=== PATIENT | male | born 1950 | race Caucasian/White ===

== ENCOUNTER → 2017-01-04 | Outpatient (CLI) | payer BC ==
[~2017-01-04] MED LIST: ASCO500T3 PO; CALC250T8 PO; CALC500C3 PO; CHOL100010 PO; CHONCAP PO; GLUC10007 PO; MISCCAP3 PO; MULT-513 PO; Magnesium PO; PRIMROSE PO
== END | disposition home or self-care (01) ==
LOC: C.LABBC 09:17
PROVIDERS: ATTEND Internal Medicine
DX: Z00.00 Encounter for general adult medical examination without abnormal findings (principal); C61 Malignant neoplasm of prostate

== ENCOUNTER → 2017-03-02 | Outpatient (CLI) | payer BC ==
[2017-03-02 17:19] LABS: LYME DISEASE AB IGG NEG (NEG); LYME DISEASE AB IGM NEG (NEG)
== END | disposition home or self-care (01) ==
LOC: C.LABBC 14:47
PROVIDERS: ATTEND Internal Medicine
DX: R21 Rash and other nonspecific skin eruption (principal)

== ENCOUNTER → 2017-05-25 | Outpatient (CLI) | payer BC ==
[2017-05-25 11:02] LABS: BASO % 0.7 %; BASO ABS # 0.04 K/uL (0-0.2); COMPLETE YES; EOS % 2.6 %; HEMATOCRIT 41.5 % (42-52); IG% 0.2 %; LYMPH % 28.1 %; LYMPH ABS # 1.54 K/uL (1.2-3.4); MEAN CELL VOLUME 91.2 fL (80-100); MEAN CORPUSCULAR HEMOGLOBIN 30.1 pg (25-34); MEAN PLATELET VOLUME 8.9 fL (7.4-10.4); MONO % 10.9 %; NEUT % 57.5 %; PLATELET COUNT 258 K/uL (130-400); RED BLOOD COUNT 4.55 M/uL (4.7-6.1); WHITE BLOOD COUNT 5.48 K/uL (4.8-10.8)
[2017-05-25 11:26] LABS: ALT/SGPT 29 U/L (12-78); AST/SGOT 23 U/L (15-37); BLOOD UREA NITROGEN 24 mg/dl (7-18); BUN/CREATININE RATIO 22.8 (10-20); CALCIUM 8.9 mg/dl (8.5-10.1); CARBON DIOXIDE 27 mmol/L (21-32); CHLORIDE 103 mmol/L (98-107); CREATININE 1.03 mg/dl (0.60-1.40); GLUCOSE 93 mg/dl (70-99); POTASSIUM 4.4 mmol/L (3.5-5.1); SODIUM 138 mmol/L (136-145)
[2017-05-25 11:29] LABS: ALB/GLOB RATIO 1.2 (0.9-2); ALKALINE PHOSPHATASE 50 U/L (45-117); CHOLESTEROL 194 mg/dl (0-200); HDL CHOLESTEROL 95 mg/dl; LDL CHOLESTEROL CALCULATED 91 mg/dl; TRIGLYCERIDES 42 mg/dl (0-150); VERY LOW DENSITY LIPOPROT CALC 8 mg/dl
--- NOTE | 2017-06-15 11:50 | CODING QUERY MEDICAL NECESSITY ---
CQSUPPORTING DIAGNOSIS NEEDED A supporting diagnosis is required for the test/procedure performed on this patient in order for us to be reimbursed by the patient's insurance. Please provide a supporting diagnosis for the following test/procedure listed below next to the test name along with your signature. *If there is no additional diagnosis for this patient that would support the following test/procedure please document that below next to the test/procedure. Test(s)/Procedure(s) that require a supporting diagnosis: DOS 05/25/17 VITAMIN D TEST Provider Signature: Date: Thank you Violeta Hayden Health Information Management Once completed, please kindly fax back to [phone] For questions please call [phone]
== END | disposition home or self-care (01) ==
LOC: C.LABBC 08:30
PROVIDERS: ATTEND Internal Medicine
DX: Z00.00 Encounter for general adult medical examination without abnormal findings (principal); D64.9 Anemia, unspecified; E78.5 Hyperlipidemia, unspecified; Z11.59 Encounter for screening for other viral diseases; C61 Malignant neoplasm of prostate; N35.9 Urethral stricture, unspecified

== ENCOUNTER → 2017-07-27 | Outpatient (CLI) | payer BC | END | disposition home or self-care (01) | LOC: C.LABBC 10:59 | PROVIDERS: ATTEND Psychiatry & Neurology Neurology | DX: R41.89 Other symptoms and signs involving cognitive functions and awareness (principal); R41.3 Other amnesia ==

== ENCOUNTER → 2017-08-03 | Outpatient (CLI) | payer BC | END | disposition home or self-care (01) | LOC: C.PATHSPEC 15:07 | PROVIDERS: ATTEND Dentist Oral and Maxillofacial Surgery | DX: M27.2 Inflammatory conditions of jaws (principal) ==

== ENCOUNTER → 2017-08-07 | Outpatient (CLI) | payer BC ==
--- NOTE | 2017-08-07 11:50 | DIAGNOSTIC IMAGING REPORT ---
MRI OF THE BRAIN WITHOUT IV CONTRAST CLINICAL HISTORY: Cognitive impairment. COMPARISON STUDY: No priors. TECHNIQUE: MRI of the brain was performed utilizing various T1 and T2-weighted sequences in the axial, sagittal, and coronal planes. IV contrast was not administered for this examination. FINDINGS: Brain parenchyma: There is mild subcortical and periventricular microangiopathic disease. There is no hemorrhage or mass effect. There is no restricted diffusion to suggest acute ischemia. Carrizales-white matter differentiation is preserved. No extra-axial fluid collection is seen. The cerebellar tonsils are normal in configuration. Ventricles, sulci, and cisterns: Normal in configuration. Pituitary and sella: Unremarkable. Intracranial vasculature: Normal flow voids are maintained at the skull base. Orbits: The bony orbits are grossly intact. Orbital contents are normal in appearance. Sinuses and mastoids: There is a moderate right mastoid effusion. The left mastoid air cells and paranasal sinuses are clear. Calvarium: Unremarkable. Cervical cord: Partially visualized cervical spinal cord is normal in morphology and signal intensity. IMPRESSION: 1. No acute intracranial abnormality. 2. Mild microangiopathic change as above. 3. Right mastoid effusion. Electronically signed by: Tej Scanlon M.D. 08/07/2017 11:49 AM Dictated Date/Time: 08/07/2017 11:22 AM
== END | disposition home or self-care (01) ==
LOC: C.MRIBC 10:38
PROVIDERS: ATTEND Psychiatry & Neurology Neurology
DX: R41.89 Other symptoms and signs involving cognitive functions and awareness (principal); R41.3 Other amnesia; R51 Headache

== ENCOUNTER → 2017-11-01 | Outpatient (CLI) | payer BC ==
--- NOTE | 2017-11-01 18:44 | DIAGNOSTIC IMAGING REPORT ---
(CHEST FOR PE) ANGIO WITH CT DOSE: 300.84 mGy.cm HISTORY: 67 years-old Male presents with acute shortness of breath and cardiac palpitations. History of prostate cancer. TECHNIQUE: Multiple CTA images of the chest were obtained after the intravenous administration of 93 ml Optiray 320. Coronal and sagittal MIPS were obtained from the axial data set and were submitted for review. A dose lowering technique was utilized adhering to the principles of ALARA. COMPARISON: Chest CT 04/09/2015, chest radiograph 09/07/2015 FINDINGS: CTA: Heart size is upper limits of normal. Trace pericardial effusion. Left heart structures are not well opacified. Fusiform dilation of the ascending thoracic aorta measures 4.5 x 4.5 cm in AP and transverse dimension, previously measuring approximately 4.3 x 4.4 cm on study dated 04/09/2015. Moderate atherosclerosis of the aortic arch. No definite dissection identified. The pulmonary arterial tree is opacified to the level of the subsegmental branches and demonstrates no focal filling defects to suggest pulmonary thromboembolic disease. CT CHEST: Mildly heterogeneous appearance of the thyroid with 6 mm right thyroid nodule. No pathologically enlarged lymph nodes by CT size criteria. There is no pneumothorax or pleural effusion. No lobar airspace consolidation to suggest pneumonia. Mild biapical pleural-parenchymal scarring. No suspicious pulmonary nodules or masses identified. Mild nonspecific bilateral bronchial wall thickening. Central airways are patent. No acute process of the imaged upper abdomen identified. 2.2 cm cyst of the superior pole left kidney. Soft tissues are unremarkable. Bones appear intact. IMPRESSION: 1. No acute intrathoracic abnormality identified, specifically no evidence of pulmonary thromboembolic disease. 2. Fusiform aneurysmal dilation of the ascending thoracic aorta, 4.5 x 4.5 cm has slightly increased in size from comparison study 04/09/2015. 3. No lobar airspace consolidation or pathologic adenopathy identified. The above report was generated using voice recognition software. It may contain grammatical, syntax or spelling errors. Electronically signed by: Tato Betancourt M.D. 11/01/2017 6:43 PM Dictated Date/Time: 11/01/2017 6:34 PM
== END | disposition home or self-care (01) ==
LOC: C.CTS 17:35
PROVIDERS: ATTEND Internal Medicine
DX: R00.2 Palpitations (principal); R06.02 Shortness of breath; I77.810 Thoracic aortic ectasia

== ENCOUNTER 2022-11-15 08:33 | Inpatient (IN) ==
--- NOTE | 2022-11-15 08:50 | Emergency Department Note ---
Impression & Plan Fracture of right hip, Fall, Dementia, Anemia ED Provider Note NAME: GIOVANNA VELASQUEZ AGE: 72 SEX: M : 1950 ARRIVES VIA: Ambulance INFORMANT: [Patient][ems, nursing] ED PROVIDER(S): [Tej Rojas MD] CHIEF COMPLAINT: Fall HISTORY OF PRESENT ILLNESS: The patient is a 72-year-old male who apparently had an unwitnessed fall sometime this morning. He complains of right upper leg pain and he yells when he tries to stand on the leg. The patient has dementia and cannot offer any history. No other areas of injury noted by EMS. PMHx/PSHx: See Below SOCIAL HISTORY: See Below. PHYSICAL EXAM: GENERAL: Patient is in no acute distress. HEENT: No acute trauma, normocephalic atraumatic, mucous membranes moist, no nasal congestion. NECK: No stridor, no adenopathy, no meningismus, trachea is midline. LUNGS: Clear to auscultation bilaterally, no wheeze, no rhonchi, breath sounds equal. HEART: Without murmurs gallops or rubs, regular rate and rhythm. ABDOMEN: Soft, nontender, bowel sounds positive, no peritonitis. EXTREMITIES: No cyanosis or edema. There appears to be some pain in the area of the right hip and femur with movement of the leg. There is no gross deformity. The right knee is nontender and there is no effusion. The right ankle and right foot are nontender. The right quadriceps and patellar tendons appear intact. NEUROLOGIC: Awake, interactive, moves all extremities, dementia/confusion noted. Poor historian. SKIN: No rash, no jaundice, no diaphoresis. DIFFERENTIAL DIAGNOSIS: Fracture, sprain, strain, hematoma, contusion,, intracranial injury, among others. EMERGENCY DEPARTMENT COURSE/PROCEDURES: Prior/Outside records reviewed: Recent primary care note. ECG per my interpretation: Indication was hip fracture. The ECG shows a normal sinus rhythm with a rate of 63. There is a right bundle branch block. There is no ST elevation, no PVCs. The QTc is 450. MEDICAL DECISION MAKING: There is no leukocytosis. A mild anemia was seen, this is baseline looking back at previous testing. There was a normal platelet count. No coagulopathy. No renal failure or significant electrolyte abnormality. No concerning liver enzyme elevation. COVID test returned negative. ECG shows a normal sinus rhythm, no dysrhythmia or ischemia. Pelvis and bilateral hip films were performed. Per my review, there is a right intertrochanteric hip fracture. No pelvic fracture. No left hip fracture. Brain CT showed no acute bleed or mass effect. On exam, the patient was a very poor historian but appeared to have pain with movement of the right hip. He complained at times of pain in the left hip as well as the right. I did speak with the patient's family, I spoke with the patient. The patient will require a hospital stay given the findings on our imaging. I did consult Dr. Ferrell of orthopedics. I spoke with case management, the on- call hospitalist was consulted. During the patient's stay, he was given IV Zofran as well as IV morphine. He seems to be resting comfortably. DISPOSITION: Patient's presentation and findings warrant a hospital stay. Past Med/Surg History Medical History Cognitive dysfunction Dyslipidemia Intermittent lightheadedness Major neurocognitive disorder Memory difficulties Orthostasis Pneumonia (~09/2013) Surgical History H/O vasectomy History of colonoscopy History of knee surgery History of prostate surgery Family History Father Dementia COPD (chronic obstructive pulmonary disease) Hypertension Prostate cancer Mother Multiple myeloma Family/Other Benign neoplasm of pituitary gland Colorectal cancer Anxiety Uncle Prostate cancer Denies family history of Ovarian cancer Myocardial infarction Breast cancer Social History Smoking Status: Unknown if ever smoked Tobacco Type: Cigarettes Second Hand Exposure: No; Do You Dip or Chew Tobacco: No; Hx Alcohol Use: Yes Alcohol type: hard liquor Alcohol Intake Frequency: Monthly or Less Hx Substance Use: No (medical marijuana) Preferred Language: French Communication Ability: Effective Visual Impairment: Limited Hearing Ability: Normal Core Inspector Required: No marital status: / current occupational status: retired How many Children do You have: 2 Feels Safe at Home: Yes Childhood Exposure to Second-Hand Smoke: No Diet: low carbohydrate caffeine: Yes Dental Care, Regularly: Yes Physical Activity Frequency: 3-4 Times per Week Seatbelt Use: always Sunscreen Use: Yes Allergies Allergies Allergy/AdvReac Type Severity Reaction Status Date / Time No Known Allergies Allergy Verified 10/19/22 14:42 Neoprene Knee Stabilizer AdvReac Unknown Rash Uncoded 10/19/22 14:42 Home Meds Home Medications Medication Instructions Recorded Confirmed leuprolide (4 month) 30 mg (4 30 mg IM Q16W 03/04/19 11/15/22 month) intramuscular syringe kit (Lupron Depot) acetaminophen 325 mg capsule 650 mg PO QID PRN Pain 10/19/22 11/15/22 docusate sodium 100 mg capsule 100 mg PO BID 10/19/22 11/15/22 (Colace) haloperidol 0.5 mg tablet 0.5 mg PO TID PRN Agitation 10/19/22 11/15/22 melatonin 3 mg capsule 3 mg PO HS PRN Sleep 10/19/22 11/15/22 quetiapine 50 mg tablet (Seroquel) See Rx Instructions PO DAILY 10/19/22 11/15/22 trazodone 50 mg tablet 50 mg PO HS 11/15/22 11/15/22 Previous Rx's Medication Instructions Recorded famotidine 20 mg tablet 20 mg PO BID #180 tabs 02/03/22 fluoxetine 20 mg capsule 20 mg PO DAILY #90 caps 02/03/22 Results & Data (ED) Vital Signs Vital Signs - 24 hr 11/15/22 08:33 11/15/22 08:44 11/15/22 10:00 Temperature 36.6 C Temperature Source Axillary Pulse Rate 77 68 Pulse Rate [Right Finger] 69 Pulse Rhythm [Right Finger] Regular Pulse Strength [Right Finger] Normal Respiratory Rate 18 18 Respiratory Effort / Characteristics Non-Labored Non-Labored Respiratory Depth Normal Normal Respiratory Pattern Regular Regular Blood Pressure 155/97 H Blood Pressure [Right Arm] 150/95 H Blood Pressure Mean 116 Blood Pressure Mean [Right Arm] 113 Blood Pressure Position [Right Arm] Pulse Oximetry 98 93 Oxygen Delivery Method Room Air Room Air Sepsis Recent Fever Within 48 Hours No Sepsis New/Unexplained Change in Mental Status N/A Sepsis Action Taken by Nursing No Action Required 11/15/22 12:00 11/15/22 13:02 Temperature Temperature Source Pulse Rate 72 Pulse Rate [Right Finger] 75 Pulse Rhythm [Right Finger] Regular Pulse Strength [Right Finger] Normal Respiratory Rate 22 Respiratory Effort / Characteristics Non-Labored Respiratory Depth Normal Respiratory Pattern Regular Blood Pressure Blood Pressure [Right Arm] 126/87 Blood Pressure Mean Blood Pressure Mean [Right Arm] 100 Blood Pressure Position [Right Arm] Lying Pulse Oximetry 97 Oxygen Delivery Method Room Air Sepsis Recent Fever Within 48 Hours Sepsis New/Unexplained Change in Mental Status Sepsis Action Taken by Longterm Medications Current Medication List: was personally reviewed by me Laboratory Data Attestation: I reviewed the patient's lab results. 11/15/22 09:52 11/15/22 09:52 Lab Results 11/15/22 11/15/22 11/15/22 Range/Units 09:52 09:52 09:52 WBC 5.34 (4.8-10.8) K/ul RBC 4.26 L (4.70-6.10) M/uL Hgb 12.6 L (14.0-18.0) g/dl Hct 36.9 L (42.0-52.0) % MCV 86.6 (80.0-100.0) fL MCH 29.6 (25.0-34.0) pg MCHC 34.1 (32.0-36.0) g/dL RDW Std Deviation 40.9 (36.4-46.3) fL RDW Coeff of Carol 13.0 (11.5-14.5) % Plt Count 236 (130-400) K/uL MPV 8.7 L (9.4-12.4) fL Immature Gran % (Auto) 0.7 % Neut % (Auto) 77.0 % Lymph % (Auto) 14.2 % [place] % (Auto) 6.2 % Eos % (Auto) 1.5 % Baso % (Auto) 0.4 % Neut # (Auto) 4.11 (1.40-6.50) K/uL Lymph # (Auto) 0.76 L (1.2-3.4) K/uL [place] # (Auto) 0.33 (0.11-0.59) K/uL Eos # (Auto) 0.08 (0-0.50) K/uL Baso # (Auto) 0.02 (0-0.2) K/uL Immature Gran # (Auto) 0.04 (0.01-0.20) K/uL PT 11.4 (9.0-12.0) Seconds INR 1.0 (0.9-1.1) APTT 26.0 (21.0-31.0) Seconds PTT Ratio 0.9 Sodium 139 (136-145) mmol/L Potassium 3.9 (3.5-5.1) mmol/L Chloride 104 (98-107) mmol/L Carbon Dioxide 27 (21-32) mmol/L Anion Gap 8 (3-11) BUN 13 (6-23) mg/dl Creatinine 0.69 (0.6-1.4) mg/dl Est Cr Clr Drug Dosing Not Reportable Est GFR ( Amer) 109.9 ml/min Est GFR (Non-Af Amer) 94.8 ml/min BUN/Creatinine Ratio 18.8 (10-20) Glucose 103 H (70-99(Fasting)) mg/dl Calcium 9.1 (8.6-10.3) mg/dl Total Bilirubin 0.6 (0.2-1.0) mg/dl AST 17 (13-39) U/L ALT 9 (7-52) U/L Alkaline Phosphatase 87 (34-104) U/L Total Creatine Kinase (30-223) U/L Total Protein 6.9 (6.0-8.3) gm/dl Albumin 4.2 (3.4-5.0) gm/dl Globulin 2.7 (2.5-4.0) gm/dl Albumin/Globulin Ratio 1.6 (0.9-2) SARS-CoV-2, RNA, NAAT (NEGATIVE) Blood Type Antibody Screen 11/15/22 11/15/22 11/15/22 Range/Units 10:54 10:57 10:57 WBC (4.8-10.8) K/ul RBC (4.70-6.10) M/uL Hgb (14.0-18.0) g/dl Hct (42.0-52.0) % MCV (80.0-100.0) fL MCH (25.0-34.0) pg MCHC (32.0-36.0) g/dL RDW Std Deviation (36.4-46.3) fL RDW Coeff of Carol (11.5-14.5) % Plt Count (130-400) K/uL MPV (9.4-12.4) fL Immature Gran % (Auto) % Neut % (Auto) % Lymph % (Auto) % [place] % (Auto) % Eos % (Auto) % Baso % (Auto) % Neut # (Auto) (1.40-6.50) K/uL Lymph # (Auto) (1.2-3.4) K/uL [place] # (Auto) (0.11-0.59) K/uL Eos # (Auto) (0-0.50) K/uL Baso # (Auto) (0-0.2) K/uL Immature Gran # (Auto) (0.01-0.20) K/uL PT (9.0-12.0) Seconds INR (0.9-1.1) APTT (21.0-31.0) Seconds PTT Ratio Sodium (136-145) mmol/L Potassium (3.5-5.1) mmol/L Chloride (98-107) mmol/L Carbon Dioxide (21-32) mmol/L Anion Gap (3-11) BUN (6-23) mg/dl Creatinine (0.6-1.4) mg/dl Est Cr Clr Drug Dosing Est GFR ( Amer) ml/min Est GFR (Non-Af Amer) ml/min BUN/Creatinine Ratio (10-20) Glucose (70-99(Fasting)) mg/dl Calcium (8.6-10.3) mg/dl Total Bilirubin (0.2-1.0) mg/dl AST (13-39) U/L ALT (7-52) U/L Alkaline Phosphatase (34-104) U/L Total Creatine Kinase 60 (30-223) U/L Total Protein (6.0-8.3) gm/dl Albumin (3.4-5.0) gm/dl Globulin (2.5-4.0) gm/dl Albumin/Globulin Ratio (0.9-2) SARS-CoV-2, RNA, NAAT NEGATIVE (NEGATIVE) Blood Type AB Negative Antibody Screen NEGATIVE Administered Medications Discontinued Medications Acetaminophen (Acetaminophen 325 Mg Tab) 650 mg PO NOW STA Stop: 11/15/22 11:28 Last Admin: 11/15/22 12:34 Dose: 650 mg Documented By: AP Lactated Ringer's (Lr) 1,000 mls @ 999 mls/hr IV .Q1H1M ONE Stop: 11/15/22 12:29 Last Admin: 11/15/22 12:34 Dose: 999 mls/hr Documented By: AP Morphine Sulfate (Morphine Sulfate 4 Mg/Ml 1 Ml Carp\Vial) 4 mg IV Q30M PRN PRN Reason: Severe Pain (Rating 7,8,9,10) Stop: 11/29/22 09:20 Last Admin: 11/15/22 10:11 Dose: 4 mg Documented By: AP Morphine Sulfate (Morphine Sulfate 2 Mg/Ml Carp) 2 mg IV NOW STA Stop: 11/15/22 12:34 Last Admin: 11/15/22 13:03 Dose: 2 mg Documented By: AP Ondansetron HCl (Ondansetron Inj 2 Mg/Ml 2 Ml Vial) 4 mg IV NOW STA Stop: 11/15/22 09:22 Last Admin: 11/15/22 10:11 Dose: 4 mg Documented By: AP Quetiapine Fumarate (Quetiapine Fumarate 25 Mg Tablet) 50 mg PO NOW STA Stop: 11/15/22 12:38 Last Admin: 11/15/22 13:12 Dose: 50 mg Documented By: AP Imaging Data Radiologist's Impression: Femur X-Ray 11/15/22 08:45 XR femur RT 2V routine, XR femur LT 2V routine CLINICAL HISTORY: Fall. Bilateral femur pain. COMPARISON STUDY: Pelvis radiograph 11/15/2022. FINDINGS: There is again noted a comminuted and mildly displaced intertrochanteric fracture within the proximal right femur. The distal right femur appears intact. No dislocation. No acute fracture or dislocation within the left femur. IMPRESSION: 1. Redemonstration of the proximal right femoral intertrochanteric fracture. 2. No fracture or dislocation within the left femur. ACT 112: Negative or not required by law. Electronically signed by: Ever Wade M.D. 11/15/2022 9:[address] 11/15/22 08:45 CT SCAN OF THE BRAIN WITHOUT IV CONTRAST CLINICAL HISTORY: Fall. Dementia. COMPARISON STUDY: CT of the brain dated 06/23/2022 TECHNIQUE: Unenhanced axial CT scan of the brain is performed from the vertex to the skull base. A dose lowering technique was utilized adhering to the principles of ALARA. CT DOSE: 614.27 mGy.cm FINDINGS: Brain parenchyma: There is age-related involutional change noting moderate subcortical and periventricular microangiopathic disease. There is no hemorrhage, mass effect, or evidence of acute territorial ischemia by CT criteria. Carrizales-white matter differentiation is preserved. No extra-axial fluid collection is seen. Ventricles, sulci, cisterns: Prominent secondary to involutional change. Intracranial vasculature: There is atherosclerotic calcification of the cavernous carotid arteries. Calvarium: The skeletal structures are osteopenic. No depressed calvarial fracture is seen. Sinuses and mastoids: The visualized paranasal sinuses are clear. The mastoid air cells are well pneumatized. Cerumen is noted in the left external auditory canal. Orbits: The bony orbits are grossly intact. There are bilateral ocular lens implants. IMPRESSION: There is no hemorrhage, mass effect, or evidence of acute territorial ischemia by CT criteria. ACT 112: Negative or not required by law. Electronically signed by: Tej Scanlon M.D. 11/15/2022 10:22 AM Pelvis X-Ray 11/15/22 08:45 SINGLE VIEW PELVIS CLINICAL HISTORY: Fall. Pain. FINDINGS: An AP supine view of the pelvis is obtained. Correlation is made with pelvic CT dated 04/16/2019. The skeletal structures are osteopenic. No acute fracture is seen involving the left hip or the bony pelvis. There is a comminuted intertrochanteric fracture of the right proximal femur with medial displacement of the lesser trochanter. Overlying soft tissue edema is noted. Mild arthritic change and joint space narrowing is seen in the hips. Degenerative sclerosis is noted in the sacroiliac joints. Lumbosacral spondylosis is partially imaged. Surgical clips project over the scrotum. There is no bowel obstruction. IMPRESSION: Intertrochanteric fracture of the right proximal femur as above. Electronically signed by: Tej Scanlon M.D. 11/15/2022 9:39 AM Femur X-Ray 11/15/22 09:01 XR femur RT 2V routine, XR femur LT 2V routine CLINICAL HISTORY: Fall. Bilateral femur pain. COMPARISON STUDY: Pelvis radiograph 11/15/2022. FINDINGS: There is again noted a comminuted and mildly displaced intertrochanteric fracture within the proximal right femur. The distal right femur appears intact. No dislocation. No acute fracture or dislocation within the left femur. IMPRESSION: 1. Redemonstration of the proximal right femoral intertrochanteric fracture. 2. No fracture or dislocation within the left femur. ACT 112: Negative or not required by law. Electronically signed by: Ever Wade M.D. 11/15/2022 9:45 AM Chest X-Ray 11/15/22 11:55 SUPINE PORTABLE AP CHEST RADIOGRAPH CLINICAL HISTORY: Pre-operative clearance for right hip fracture COMPARISON STUDY: Chest CT April 16, 2019. FINDINGS: Lung volumes are normal. There is no consolidation to suggest pneumonia. Linear left basilar density represents atelectasis or scarring. There is no pneumothorax or pleural effusion on supine exam. Cardiac size is normal. Mediastinal contours are normal. There is no evidence for pulmonary edema. IMPRESSION: No acute cardiopulmonary findings. ACT 112: Negative or not required by law. Electronically signed by: Brodie Hernandez M.D. 11/15/2022 12:40 PM Discharge Plan Visit Data Chief Complaint: Fall Stated Complaint: FALL, R LEG PAIN ED Provider: Tej Rojas Discharge Problem: Fracture of right hip, Fall, Dementia, Anemia Patient Disposition: Admitted As Inpatient Condition: Good Forms Stand Alone Forms: My LOYAL3 Prescriptions Prescriptions: No Action famotidine 20 mg tablet 20 mg PO BID Qty: 180 1RF fluoxetine 20 mg capsule 20 mg PO DAILY Qty: 90 1RF docusate sodium [Colace] 100 mg capsule 100 mg PO BID quetiapine [Seroquel] 50 mg tablet See Rx Instructions PO DAILY Rx Instructions: 100mg in morning, 50 mg at 2pm, 200mg at bedtime melatonin 3 mg capsule 3 mg PO HS PRN (Reason: Sleep) acetaminophen 325 mg capsule 650 mg PO QID PRN (Reason: Pain) haloperidol 0.5 mg tablet 0.5 mg PO TID PRN (Reason: Agitation) Lupron Depot (4 month) 30 mg syringe kit 30 mg IM Q16W trazodone 50 mg tablet 50 mg PO HS Referrals Referrals: Fuentes Tan MD [Primary Care Provider] -
[2022-11-15] MEDS ORDERED: MoRPHine SULFATE 4 MG/ML 1 ML CARP\\VIAL IV PRN (09:21)
[2022-11-15] MEDS ORDERED: ONDANSETRON INJ 2 MG/ML 2 ML VIAL IV STA (09:21)
--- NOTE | 2022-11-15 09:41 | XRay Report ---
SINGLE VIEW PELVIS CLINICAL HISTORY: Fall. Pain. FINDINGS: An AP supine view of the pelvis is obtained. Correlation is made with pelvic CT dated 2018. The skeletal structures are osteopenic. No acute fracture is seen involving the left hip or the bony pelvis. There is a comminuted intertrochanteric fracture of the right proximal femur with media l displacement of the lesser trochanter. Overlying soft tissue edema is noted. Mild arthritic change and joint space narrowing is seen in the hips. Degenerative sclerosis is noted in the sacroiliac join ts. Lumbosacral spondylosis is partially imaged. Surgical clips project over the scrotum. There is no bowel obstruction. IMPRESSION: Intertrochanteric fracture of the right proximal femur as above. Electronically signed by: Tej Scanlon M.D. 11/15/2022 9:39 AM
--- NOTE | 2022-11-15 09:47 | XRay Report ---
XR femur RT 2V routine, XR femur LT 2V routine CLINICAL HISTORY: Fall. Bilateral femur pain. COMPARISON STUDY: Pelvis radiograph 11/15/2022. FINDINGS: There is again noted a comminuted and mildly displaced intertrochanteric fracture within th e proximal right femur. The distal right femur appears intact. No dislocation. No acute fracture or d islocation within the left femur. IMPRESSION: 1. Redemonstration of the proximal right femoral intertrochanteric fracture. 2. No fracture or dislocation within the left femur. ACT 112: Negative or not required by law. Electronically signed by: Ever Wade M.D. 11/15/2022 9:45 AM
[2022-11-15 10:22] LABS: Basophils # (auto) 0.02 K/uL (0-0.2); Basophils % (auto) 0.4 %; Eosinophils # (auto) 0.08 K/uL (0-0.50); Eosinophils % (auto) 1.5 %; Hematocrit (blood only) 36.9 % (42.0-52.0); Hemoglobin 12.6 g/dl (14.0-18.0); Immature Granulocytes # (auto) 0.04 K/uL (0.01-0.20); Immature Granulocytes % (auto) 0.7 %; Lymphocytes # (auto) 0.76 K/uL (1.2-3.4); Lymphocytes % (auto) 14.2 %; Mean Corpuscular Hemoglobin 29.6 pg (25.0-34.0); Mean Corpuscular Hgb Conc 34.1 g/dL (32.0-36.0); Mean Corpuscular Volume 86.6 fL (80.0-100.0); Mean Platelet Volume 8.7 fL (9.4-12.4); Monocytes # (auto) 0.33 K/uL (0.11-0.59); Monocytes % (auto) 6.2 %; Neutrophils # (auto) 4.11 K/uL (1.40-6.50); Platelet Count 236 K/uL (130-400); RDW Standard Deviation 40.9 fL (36.4-46.3); Red Blood Count 4.26 M/uL (4.70-6.10); White Blood Count 5.34 K/ul (4.8-10.8)
--- NOTE | 2022-11-15 10:24 | CT Scan Report ---
CT SCAN OF THE BRAIN WITHOUT IV CONTRAST CLINICAL HISTORY: Fall. Dementia. COMPARISON STUDY: CT of the brain dated 06/23/2022 TECHNIQUE: Unenhanced axial CT scan of the brain is performed from the vertex to the skull base. A do se lowering technique was utilized adhering to the principles of ALARA. CT DOSE: 614.27 mGy.cm FINDINGS: Brain parenchyma: There is age-related involutional change noting moderate subcortical and periventri cular microangiopathic disease. There is no hemorrhage, mass effect, or evidence of acute territorial ischemia by CT criteria. Carrizales-white matter differentiation is preserved. No extra-axial fluid collec tion is seen. Ventricles, sulci, cisterns: Prominent secondary to involutional change. Intracranial vasculature: There is atherosclerotic calcification of the cavernous carotid arteries. Calvarium: The skeletal structures are osteopenic. No depressed calvarial fracture is seen. Sinuses and mastoids: The visualized paranasal sinuses are clear. The mastoid air cells are well pneu matized. Cerumen is noted in the left external auditory canal. Orbits: The bony orbits are grossly intact. There are bilateral ocular lens implants. IMPRESSION: There is no hemorrhage, mass effect, or evidence of acute territorial ischemia by CT hodan mayes. ACT 112: Negative or not required by law. Electronically signed by: Tej Scanlon M.D. 11/15/2022 10:22 AM
[2022-11-15 10:34] LABS: Alanine Aminotransferase 9 U/L (7-52); Albumin Globulin Ratio 1.6 (0.9-2); Albumin Level 4.2 gm/dl (3.4-5.0); Alkaline Phosphatase 87 U/L (34-104); Anion Gap 8 (3-11); Aspartate Aminotransferase 17 U/L (13-39); BUN Creatinine Ratio 18.8 (10-20); Bilirubin,Total 0.6 mg/dl (0.2-1.0); Blood Urea Nitrogen 13 mg/dl (6-23); Calcium 9.1 mg/dl (8.6-10.3); Carbon Dioxide 27 mmol/L (21-32); Chloride 104 mmol/L (98-107); Est GFR (African American) 109.9 ml/min; Est GFR (Non-African American) 94.8 ml/min; Globulin 2.7 gm/dl (2.5-4.0); Glucose 103 mg/dl (70-99(Fasting)); Potassium 3.9 mmol/L (3.5-5.1); Sodium 139 mmol/L (136-145); Total Protein 6.9 gm/dl (6.0-8.3)
--- NOTE | 2022-11-15 10:47 | History & Physical Report ---
Date of Service November 15, 2022 Assessment & Plan (1) Fall: Plan: -Admit to med/tele -Unknown cause of fall as it was unwitnessed, but it does not appear that he was down for a prolonged period of time -No other acute trauma besides the proximal right hip fracture -ED staff spoke with ortho, they are comfortable keeping him here -Keep NPO until we confirm plan with Ortho -Will obtain CK -BL SCD's for DVT PPX for now, will start chemical PPX when ortho is comfortable -Pain control with oral tylenol and 2 mg IV morpine q3h prn pain (4,5,6+) -Fall precautions -Keep on tele for now as the etiology of the fall is unknown -AM CBC, BMP, PT/INR (2) Bifascicular block: Plan: -Noted on ECG today, does have a previous hx of Incomplete right bundle branch block Left anterior fascicular block on previous ECG from Jun -Patient is currently asymptomatic -Monitor on tele for now (3) Closed right hip fracture: Plan: -See fall (4) Major neurocognitive disorder: Plan: -Continue PRN halodol for agitation and scheduled seroquel -Monitor for increased sedation due to pain control with hip fracture (5) Depression with anxiety: Plan: -Continue fluoxetine (6) Prostate cancer: Plan: -Confirmed with children that he is still on q4h Leuprn -Continue to follow with oncology outpatient Plan The patient was discussed with Dr. Shirley at the time of the admission History of Present Illness Chief Complaint: Unwitnessed Primary Care Provider: Fuentes Tan MD Milton is a 72 year old male with a PMH significant for dementia, intermittent lightheadedness, and metastatic prostate cancer S/P radical prostatectomy and Lupron therapy in 2011 [address] the [facility] ED via EMS from the [facility] due to unwitnessed fall. Per the ED staff, it is unknown when the patient fell, if he hit his head/lost consciousness, or how long he was down for. s His vitals were stable and labs including CBC, CMP, and high sen trop were WNL. CT head was negative for acute findings. Xray's of the BL pelvis show an Intertrochanteric fracture of the right proximal femur. Per the intake information, EMS reported that the patient was temporarily in afib in transport but converted spontaneously prior to arrival. Prior to admission the patient was given 4 mg IV morphine. At the time of the exam the patient was lying in bed in no acute distress with his children bedside. The patient is unable to provide history due to his baseline mental status. His children state, they were told the patient fell this am while at breakfast. However, staff only saw him on the ground, they did not see the fall. His children do not believe that he was down for a prolonged period of time. His children confirm that he is a DNR/DNI. Please refer to Dr. Shirley's attestation for any changes to the treatment plan Allergies Allergy/AdvReac Type Severity Reaction Status Date / Time No Known Allergies Allergy Verified 10/19/22 14:42 Neoprene Knee Stabilizer AdvReac Unknown Rash Uncoded 10/19/22 14:42 Home Medications Medication Instructions Recorded Confirmed Type leuprolide (4 month) 30 mg (4 30 mg IM Q16W 03/04/19 11/15/22 History month) intramuscular syringe kit (Lupron Depot) famotidine 20 mg tablet 20 mg PO BID #180 tabs 02/03/22 11/15/22 Rx fluoxetine 20 mg capsule 20 mg PO DAILY #90 caps 02/03/22 11/15/22 Rx acetaminophen 325 mg capsule 650 mg PO QID PRN Pain 10/19/22 11/15/22 History docusate sodium 100 mg capsule 100 mg PO BID 10/19/22 11/15/22 History (Colace) haloperidol 0.5 mg tablet 0.5 mg PO TID PRN Agitation 10/19/22 11/15/22 History melatonin 3 mg capsule 3 mg PO HS PRN Sleep 10/19/22 11/15/22 History quetiapine 50 mg tablet (Seroquel) See Rx Instructions PO DAILY 10/19/22 11/15/22 History trazodone 50 mg tablet 50 mg PO HS 11/15/22 11/15/22 History Past Med/Surg History Medical History Cognitive dysfunction Dyslipidemia Intermittent lightheadedness Major neurocognitive disorder Memory difficulties Orthostasis Pneumonia (~09/2013) Surgical History H/O vasectomy History of colonoscopy History of knee surgery History of prostate surgery Family History Father Dementia MILD COPD (chronic obstructive pulmonary disease) Hypertension Prostate cancer Mother , Age 61 Multiple myeloma Family/Other Benign neoplasm of pituitary gland Colorectal cancer Anxiety Uncle Prostate cancer Denies family history of Ovarian cancer Myocardial infarction Breast cancer Social History Smoking Status: Never smoker Tobacco Type: Cigarettes Second Hand Exposure: No; Do You Dip or Chew Tobacco: No; Hx Alcohol Use: Yes Alcohol type: hard liquor Alcohol Intake Frequency: Monthly or Less Hx Substance Use: Yes Last Used Substance: Unknown Substance Use Type Other:: Medical MJ Preferred Language: Armenian Communication Ability: Effective Visual Impairment: Limited Hearing Ability: Normal Topographical Engineer Required: No Beliefs That Will Affect Care: None marital status: / Current Living Situation: Alone and Personal Care Facility Current Living Situation Comment: [facility] in [employer] current occupational status: retired How many Children do You have: 2 Feels Safe at Home: Yes Childhood Exposure to Second-Hand Smoke: No Diet: low carbohydrate caffeine: Yes Dental Care, Regularly: Yes Physical Activity Frequency: 3-4 Times per Week Seatbelt Use: always Sunscreen Use: Yes Assistive Devices: None Physical Exam Physical Exam: Physical Exam: General: In no acute distress, stated age, well-nourished, good hygiene HEENT: Normocephalic, atraumatic, no scleral icterus, pupils around round, symmetrical, and reactive to light, dry mucus membranes, trachea midline, no thyromegaly Chest/Pulm: No respiratory distress, symmetrical chest expansion, clear breath sounds throughout Cardiac: RRR, no murmurs noted Abdomen: Negative for ascites and bruising, normoactive bowel sounds, soft, non-tender to palpation throughout Musculoskeletal: RLE is currently shortened and externally rotated, tenderness to palpation over the right hip, intact sensation and motor function in the BL feet, no other acute trauma noted on inspection or exam Extremities: Radial, dorsalis pedis, and posterior tibial pulses are intact and symmetrical, no edema noted in the BL LE's Skin: Warm, dry, no rashes , lesions, or scars noted Neuro: Alert but does not respond appropriately to questions, no focal defects, symmetrical strength in the BL upper extremities, no tremor noted Psych: No acute distress, plesantly confused, cooperative during the exam Results & Data Results & Data Vital Signs (Past 12 Hours) Vital Signs Temp Pulse Pulse Resp BP BP Pulse Ox 11/15/22 10:00 69 18 150/95 H 93 11/15/22 08:44 68 11/15/22 08:33 36.6 C 77 18 155/97 H 98 O2 Del Method 11/15/22 10:00 Room Air 11/15/22 08:44 11/15/22 08:33 Room Air Laboratory Results Abnormal lab results 11/15/22 11/15/22 Range/Units 09:52 09:52 RBC 4.26 L (4.70-6.10) M/uL Hgb 12.6 L (14.0-18.0) g/dl Hct 36.9 L (42.0-52.0) % MPV 8.7 L (9.4-12.4) fL Lymph # (Auto) 0.76 L (1.2-3.4) K/uL Glucose 103 H (70-99(Fasting)) mg/dl Diagnostic Findings Femur X-Ray 11/15/22 08:45 XR femur RT 2V routine, XR femur LT 2V routine CLINICAL HISTORY: Fall. Bilateral femur pain. COMPARISON STUDY: Pelvis radiograph 11/15/2022. FINDINGS: There is again noted a comminuted and mildly displaced intertrochanteric fracture within the proximal right femur. The distal right femur appears intact. No dislocation. No acute fracture or dislocation within the left femur. IMPRESSION: 1. Redemonstration of the proximal right femoral intertrochanteric fracture. 2. No fracture or dislocation within the left femur. ACT 112: Negative or not required by law. Electronically signed by: Ever Wade M.D. 11/15/2022 9:[address] 11/15/22 08:45 CT SCAN OF THE BRAIN WITHOUT IV CONTRAST CLINICAL HISTORY: Fall. Dementia. COMPARISON STUDY: CT of the brain dated 06/23/2022 TECHNIQUE: Unenhanced axial CT scan of the brain is performed from the vertex to the skull base. A dose lowering technique was utilized adhering to the principles of ALARA. CT DOSE: 614.27 mGy.cm FINDINGS: Brain parenchyma: There is age-related involutional change noting moderate subcortical and periventricular microangiopathic disease. There is no hemorrhage, mass effect, or evidence of acute territorial ischemia by CT criteria. Carrizales-white matter differentiation is preserved. No extra-axial fluid collection is seen. Ventricles, sulci, cisterns: Prominent secondary to involutional change. Intracranial vasculature: There is atherosclerotic calcification of the cavernous carotid arteries. Calvarium: The skeletal structures are osteopenic. No depressed calvarial fracture is seen. Sinuses and mastoids: The visualized paranasal sinuses are clear. The mastoid air cells are well pneumatized. Cerumen is noted in the left external auditory canal. Orbits: The bony orbits are grossly intact. There are bilateral ocular lens implants. IMPRESSION: There is no hemorrhage, mass effect, or evidence of acute territorial ischemia by CT criteria. ACT 112: Negative or not required by law. Electronically signed by: Tej Scanlon M.D. 11/15/2022 10:22 AM Pelvis X-Ray 11/15/22 08:45 SINGLE VIEW PELVIS CLINICAL HISTORY: Fall. Pain. FINDINGS: An AP supine view of the pelvis is obtained. Correlation is made with pelvic CT dated 04/16/2019. The skeletal structures are osteopenic. No acute fracture is seen involving the left hip or the bony pelvis. There is a comminuted intertrochanteric fracture of the right proximal femur with medial displacement of the lesser trochanter. Overlying soft tissue edema is noted. Mild arthritic change and joint space narrowing is seen in the hips. Degenerative sclerosis is noted in the sacroiliac joints. Lumbosacral spondylosis is partially imaged. Surgical clips project over the scrotum. There is no bowel obstruction. IMPRESSION: Intertrochanteric fracture of the right proximal femur as above. Electronically signed by: Tej Scanlon M.D. 11/15/2022 9:39 AM Femur X-Ray 11/15/22 09:01 XR femur RT 2V routine, XR femur LT 2V routine CLINICAL HISTORY: Fall. Bilateral femur pain. COMPARISON STUDY: Pelvis radiograph 11/15/2022. FINDINGS: There is again noted a comminuted and mildly displaced inte rtrochanteric fracture within the proximal right femur. The distal right femur appears intact. No dislocation. No acute fracture or dislocation within the left femur. IMPRESSION: 1. Redemonstration of the proximal right femoral intertrochanteric fracture. 2. No fracture or dislocation within the left femur. ACT 112: Negative or not required by law. Electronically signed by: Ever Wade M.D. 11/15/2022 9:45 AM ECG Additional Comments: Normal sinus rhythm Right bundle branch block Left anterior fascicular block Bifascicular block Abnormal ECG When compared with ECG of 23-JUN-2022 09:30, Premature atrial complexes are no longer Present Code Status & VTE Plan Code Status DNR/DNI VTE Prophylaxis Plan VTE Prophylaxis will be ordered: Yes Supervising Physician Co-Signing Physician Notes I personally saw and examined the patient. I verified all maria points and agree with Reynaldo Kumari PA-C with the following exceptions and/or additions: 72 year old male presents to the ER with unwitnessed fall earlier this morning. Unable to get any history from patient due to history of dementia with Parkinson's disease. At baseline he is unable to have a conversation but does recognize family members. O/E Alert, not orientated x3, Cogwheel rigidity b/l, grimaces on right leg movement, HS RRR, no murmurs, Chest CTAB, Abdo SNT A/P Right hip fracture - revised cardiac risk score 0, medically optimized for surgery at this time. Vitamin D level in AM. Consider DEXA scan as outpatient. Consult orthopedics - keep NPO as planning on surgery today. Bifascicular block - unlikely the cause of his fall given his [place] but prudent to monitor on telemetry. Not sudden episodes of syncope per family member at bedside. PG Care Time/CCT Total # of Minutes Spent Total Time Spent with Patient: Total time spent is greater than 50% in coordination of care (as documented) at patient's floor/unit and/or counseling patient: Coding [place] [address] INT INP/OBS CARE 2/55MIN Patient Type Established Medical Decision Making Moderate Complexity Diagnoses Fall W19.XXXA Bifascicular block I45.2 Closed right hip fracture S72.001A Major neurocognitive disorder F01.50 Depression with anxiety F41.8 Prostate cancer C61
[2022-11-15 10:50] LABS: Partial Thromboplastin Ratio 0.9; Prothrombin Time 11.4 Seconds (9.0-12.0)
[2022-11-15] MEDS ORDERED: NALOXONE HCL 0.4 MG/1 ML VIAL/CARP IV PRN (10:50)
[2022-11-15] MEDS ORDERED: MAGNESIUM HYDROXIDE SUSP 30 ML UDC PO PRN (10:50)
[2022-11-15] MEDS ORDERED: bisacodyL 10 MG SUPP PR PRN (10:50)
[2022-11-15] MEDS ORDERED: ACETAMINOPHEN 325 MG TAB PO STA (11:27)
[2022-11-15] MEDS ORDERED: LACTATED RINGER'S 1,000 ML IV ONE (11:29)
[2022-11-15] MEDS ORDERED: MoRPHine SULFATE 2 MG/ML CARP IV STA (12:33)
[2022-11-15] MEDS ORDERED: QUEtiapine FUMARATE 25 MG TABLET PO STA (12:37)
--- NOTE | 2022-11-15 12:41 | XRay Report ---
SUPINE PORTABLE AP CHEST RADIOGRAPH CLINICAL HISTORY: Pre-operative clearance for right hip fracture COMPARISON STUDY: Chest CT April 16, 2019. FINDINGS: Lung volumes are normal. There is no consolidation to suggest pneumonia. Linear left basila r density represents atelectasis or scarring. There is no pneumothorax or pleural effusion on supine exam. Cardiac size is normal. Mediastinal contours are normal. There is no evidence for pulmonary raul ma. IMPRESSION: No acute cardiopulmonary findings. ACT 112: Negative or not required by law. Electronically signed by: Brodie Hernandez M.D. 11/15/2022 12:40 PM
[2022-11-15] MEDS ORDERED: QUEtiapine FUMARATE 25 MG TABLET PO SCH ×2 (14:00→21:00)
[2022-11-15] MEDS ORDERED: ACETAMINOPHEN 325 MG TAB PO PRN (14:03)
[2022-11-15] MEDS ORDERED: MoRPHine SULFATE 2 MG/ML CARP IV PRN (14:03)
[2022-11-15] MEDS ORDERED: haloperidoL 0.5 MG TAB PO PRN (14:03)
--- NOTE | 2022-11-15 14:03 | Electrocardiogram Report ---
Test Reason : Blood Pressure : / mmHG Vent. Rate : 063 BPM Atrial Rate : 063 BPM P-R Int : 168 ms QRS Dur : 122 ms QT Int : 440 ms P-R-T Axes : 064 -73 066 degrees QTc Int : 450 ms Normal sinus rhythm Right bundle branch block Left anterior fascicular block Bifascicular block Abnormal ECG When compared with ECG of 23-JUN-2022 09:30, Premature atrial complexes are no longer Present Confirmed by Romel Loya ([id number]) on 11/15/2022 2:03:00 PM Referred By: Confirmed By:Romel Loya
--- NOTE | 2022-11-15 14:03 | Orthopedic Progress Note ---
Date of Service November 15, 2022 Assessment & Plan (1) Fracture of right hip: He is NPO now. He did have a couple of bites of apple sauce awhile ago. We will plan on taking him to the OR today for long IM nailing of the hip. Procedure explained including risks, benefits, and alternatives. Families questions were answered. Subjective . Milton is a 72 year old patient with h/o dementia and prostate cancer, admitted from [facility] with a right intertroch hip fracture. He apparently fell today while trying to sit in a chair. Denies any other complaints. No hip pain reported prior to the fall. Previously ambulated independently. Son and Daughter are here with him. Review of Systems All systems reviewed & are unremarkable except as noted in HPI & below. Physical Exam .alert, NAD. Confused. Right leg: Shortened and externally rotated. Able to move his toes appropriately. NVI Left leg: no pain with hip motion. Results & Data Results & Data Laboratory Results . Diagnostic Findings .xrays of the right femur and pelvis show a right intertroch fracture PG Care Time/CCT Total # of Minutes Spent Total Time Spent with Patient: Total time spent is greater than 50% in coordination of care (as documented) at patient's floor/unit and/or counseling patient: Coding Level of Care Code 81042 Post Operative Follow-Up Diagnoses Fracture of right hip S72.001A Encounter type: initial encounter Fracture type: closed (1) Fracture of right hip Encounter type: initial encounter Fracture type: closed Qualified Code(s): S72.001A - Fracture of unspecified part of neck of right femur, initial encounter for closed fracture
[2022-11-15] MEDS ORDERED: fentaNYL citrate PF 100 MCG/2 ML VIAL ONE (14:07)
[2022-11-15] MEDS ORDERED: BUPIVACAINE/EPINEPHRINE 0.5% MPF 1:200,000 30 ML VIAL ONE (14:26)
[2022-11-15] MEDS ORDERED: ceFAZolin 2,000 MG/15 ML IV PUSH IV ONE (14:44)
--- NOTE | 2022-11-15 14:49 | Orthopedic Consultation ---
Date of Service November 15, 2022 Assessment & Plan (1) Fracture of right hip: We will take him to the OR today for long IM nailing of the right hip. Procedure explained to family including risks, benefits, and alternatives. Consent obtained. We will plan to do this today. But he did have a small amount of apple sauce so we will await anesthesia evaluation. History of Present Illness Reason for Consultation: . Requesting Physician: . Attending Physician: Cayden Shirley MD HPI completed per progress note signed today. Patient fell today injuring his right hip at [facility]. Allergies Allergy/AdvReac Type Severity Reaction Status Date / Time No Known Allergies Allergy Verified 10/19/22 14:42 Neoprene Knee Stabilizer AdvReac Unknown Rash Uncoded 10/19/22 14:42 Home Medications Medication Instructions Recorded Confirmed Type leuprolide (4 month) 30 mg (4 30 mg IM Q16W 03/04/19 11/15/22 History month) intramuscular syringe kit (Lupron Depot) famotidine 20 mg tablet 20 mg PO BID #180 tabs 02/03/22 11/15/22 Rx fluoxetine 20 mg capsule 20 mg PO DAILY #90 caps 02/03/22 11/15/22 Rx acetaminophen 325 mg capsule 650 mg PO QID PRN Pain 10/19/22 11/15/22 History docusate sodium 100 mg capsule 100 mg PO BID 10/19/22 11/15/22 History (Colace) haloperidol 0.5 mg tablet 0.5 mg PO TID PRN Agitation 10/19/22 11/15/22 History melatonin 3 mg capsule 3 mg PO HS PRN Sleep 10/19/22 11/15/22 History quetiapine 50 mg tablet (Seroquel) See Rx Instructions PO DAILY 10/19/22 11/15/22 History trazodone 50 mg tablet 50 mg PO HS 11/15/22 11/15/22 History Past Med/Surg History Medical History Cognitive dysfunction Dyslipidemia Intermittent lightheadedness Major neurocognitive disorder Memory difficulties Orthostasis Pneumonia (~09/2013) Surgical History H/O vasectomy History of colonoscopy History of knee surgery History of prostate surgery Family History Father Dementia MILD COPD (chronic obstructive pulmonary disease) Hypertension Prostate cancer Mother , Age 61 Multiple myeloma Family/Other Benign neoplasm of pituitary gland Colorectal cancer Anxiety Uncle Prostate cancer Denies family history of Ovarian cancer Myocardial infarction Breast cancer Social History Smoking Status: Unknown if ever smoked Tobacco Type: Cigarettes Second Hand Exposure: No; Do You Dip or Chew Tobacco: No; Hx Alcohol Use: Yes Alcohol type: hard liquor Alcohol Intake Frequency: Monthly or Less Hx Substance Use: No (medical marijuana) Preferred Language: Nepali Communication Ability: Effective Visual Impairment: Limited Hearing Ability: Normal Vegetable Cutter Required: No marital status: / current occupational status: retired How many Children do You have: 2 Feels Safe at Home: Yes Childhood Exposure to Second-Hand Smoke: No Diet: low carbohydrate caffeine: Yes Dental Care, Regularly: Yes Physical Activity Frequency: 3-4 Times per Week Seatbelt Use: always Sunscreen Use: Yes Review of Systems All systems reviewed & are unremarkable except as noted in HPI & below. Physical Exam .Alert, NAD Right leg: shortened and externally rotated. NVI. No pain with motion of left hip Results & Data Results & Data Laboratory Results . Diagnostic Findings . xray shows right intertroch fx PG Care Time/CCT Total # of Minutes Spent Total Time Spent with Patient: Total time spent is greater than 50% in coordination of care (as documented) at patient's floor/unit and/or counseling patient: Coding Level of Care Code 70463 IN/OBS CONSULT LVL 5,80M Diagnoses Fracture of right hip S72.001A Encounter type: initial encounter Fracture type: closed (1) Fracture of right hip Encounter type: initial encounter Fracture type: closed Qualified Code(s): S72.001A - Fracture of unspecified part of neck of right femur, initial encounter for closed fracture
--- NOTE | 2022-11-15 14:58 | Anesthesiology Consultation ---
Date of Service November 15, 2022 Assessment & Plan ASA ASA3 Proposed Anesthesia Anesthesia Type: General Risk / Benefits Reviewed With: PT / POA / Parent / Guardian, Accepts Plan and Informed Consent Obtained History Surgery Operation Date: 11/15/22 12:55 Proposed Procedures p Right Hip Long Troch Nail - Austin Pike MD Height/Weight Weight: 83.7 kg Allergies Allergy/AdvReac Type Severity Reaction Status Date / Time No Known Allergies Allergy Verified 10/19/22 14:42 Neoprene Knee Stabilizer AdvReac Unknown Rash Uncoded 10/19/22 14:42 Medications Home Medications Medication Instructions Recorded Confirmed Last Taken leuprolide (4 month) 30 mg (4 30 mg IM Q16W 03/04/19 11/15/22 06/01/22 month) intramuscular syringe kit (Lupron Depot) famotidine 20 mg tablet 20 mg PO BID #180 tabs 02/03/22 11/15/22 Unknown fluoxetine 20 mg capsule 20 mg PO DAILY #90 caps 02/03/22 11/15/22 06/22/22 acetaminophen 325 mg capsule 650 mg PO QID PRN Pain 10/19/22 11/15/22 Unknown docusate sodium 100 mg capsule 100 mg PO BID 10/19/22 11/15/22 Unknown (Colace) haloperidol 0.5 mg tablet 0.5 mg PO TID PRN Agitation 10/19/22 11/15/22 Unknown melatonin 3 mg capsule 3 mg PO HS PRN Sleep 10/19/22 11/15/22 Unknown quetiapine 50 mg tablet (Seroquel) See Rx Instructions PO DAILY 10/19/22 11/15/22 Unknown trazodone 50 mg tablet 50 mg PO HS 11/15/22 11/15/22 Unknown NPO Date Last Intake of Fluids: 11/15/22 Time Last Intake of Fluids: 13:12 Date Last Intake of Solids: 11/14/22 Time Last Intake of Solids: 18:00 Last Intake of Solids Comment: applesauce this afternoon at 1312 with enough to get his pills down Past Medical History Medical History Cognitive dysfunction Dyslipidemia Intermittent lightheadedness Major neurocognitive disorder Memory difficulties Orthostasis Pneumonia (~09/2013) Exercise / Class Metabolic Activity II 4-5 Yardwork/Stairs/Walk up hill Past Family History Family History Father Dementia MILD COPD (chronic obstructive pulmonary disease) Hypertension Prostate cancer Mother , Age 61 Multiple myeloma Family/Other Benign neoplasm of pituitary gland Colorectal cancer Anxiety Uncle Prostate cancer Denies family history of Ovarian cancer Myocardial infarction Breast cancer Past Surgical History Surgical History H/O vasectomy History of colonoscopy History of knee surgery History of prostate surgery Past Anesthesia History No Hx of Anesthesia Complications and No Family Hx of Anesthesia Complications History of PONV No Hx of PONV and No Hx of Motion Sickness Social History Smoking Status: Unknown if ever smoked Do You Dip or Chew Tobacco: No Hx Alcohol Use: Yes Alcohol type: hard liquor Hx Substance Use: No (medical marijuana) Review of Systems denies fever/cough/ colds/ chest pain/ SOB/ ZACHARIAH denies ZACHARIAH Physical Exam Vital Signs Last Vital Signs Temp 36.9 C 11/15/22 14:34 Pulse 96 H 11/15/22 14:34 Resp 16 11/15/22 14:34 BP 151/94 H 11/15/22 14:34 Pulse Ox 97 11/15/22 14:34 O2 Del Method Room Air 11/15/22 14:34 ENMT Mouth: no TMJ abnormality and no dentition abnormality Thyromental Distance: > or= 3.5 Finger Breadths Mallampati Class: III Neck neck extension not limited Respiratory normal respiratory effort; no respiratory distress Auscultation: lungs clear to auscultation bilaterally Cardiovascular Rate/Rhythm: regular rate and regular rhythm Neurologic moves all extremities Psychiatric Orientation: alert and oriented x 3 Testing Laboratory Results 11/15/22 09:52 11/15/22 09:52 PT 11.4 Seconds (9.0-12.0) 11/15/22 09:52 INR 1.0 (0.9-1.1) 11/15/22 09:52 APTT 26.0 Seconds (21.0-31.0) 11/15/22 09:52 Blood Type AB Negative 11/15/22 10:57 Antibody Screen NEGATIVE 11/15/22 10:57
[2022-11-15] MEDS ORDERED: ceFAZolin 2000MG 2,000 MG/15 ML SYR IV ONE (15:02)
[2022-11-15] MEDS ORDERED: TRANEXAMIC ACID 100 MG/ML 10 ML VIAL IV ONE (15:31)
[2022-11-15] MEDS: TRANEXAMIC ACID / 0.7% NACL 1000MG/100ML BAG IV ONE ×2 (15:49→15:50)
[2022-11-15] MEDS ORDERED: fentaNYL citrate PF 100 MCG/2 ML VIAL IV PRN (16:05)
[2022-11-15] MEDS ORDERED: ATROPINE SULFATE 0.1 MG/ML 10ML SYR IV PRN (16:05)
[2022-11-15] MEDS ORDERED: HYDROmorphone INJ 2 MG/ML SYR/VIAL IV PRN (16:05)
[2022-11-15] MEDS ORDERED: ePHEDrine sulfate 50 MG/ML AMP IV PRN (16:05)
[2022-11-15] MEDS ORDERED: SUGAMMADEX SODIUM 200 MG/2 ML VIAL IV ONE (16:16)
--- NOTE | 2022-11-15 16:30 | Operative Report ---
PG Post Operative Report Pre & Post Diagnosis Operation Date: 11/15/22 12:55 Pre-Op Diagnosis: Fracture intertrochanteric of right hip Post-Op Diagnosis: Right intertrochanteric fracture of right hip I identified the patient and participated in the time-out.: Yes Procedure Operation Date: 11/15/22 12:55 Actual Procedures p Right Hip Long Troch Nail(Right) - Austin Pike MD Surgeon Austin Pike MD Trial Mgr Pj Mcadams PA-C Estimated Blood Loss 100 Findings Consistent with Post-Op Diagnosis Specimens None Anesthesia Type General Complications none Disposition Accompanied Patient To Recovery: No Indications Patient is 72-year-old gentleman with some underlying dementia who sustained a fall. He was brought to emergency room where x-rays revealed right intertrochanteric hip fracture. Patient was medically optimized indicated for surgical management. Description of Procedure Operative implants consist of: 1. Synthes right 420 mm x 11 mm long trochanteric nail. 2. 100 mm helical blade. 3. 52 mm x 5 mm distal interlocking screw. The patient was taken the operating, identified, placed on the operating table supine position protectors were properly padded. IV antibiotics were provided by the anesthesia team. General anesthetic was implemented. The patient was then placed on the fracture table. The right leg was placed in a boot traction the left leg was placed in a well-leg fsoter. I applied some longitudinal traction of the right leg and internally rotated foot so the kneecap pointed to the ceiling. Some x-rays were obtained and the fracture was anatomically reduced. The right hip was then scrubbed with Hibiclens, prepped with ChloraPrep and draped in usual sterile fashion. A curvilinear incision did was made just proximal tip of the trochanter. Sharp dissection was carried through the subcutaneous tissue down to the fascia. The fascia was incised longitudinally in line with skin incision. A guidewire was placed just lateral to the tip of the trochanter and in line with the IM canal in the AP and lateral planes. This is overreamed with the large reamer. This guidewire was then removed and a ball-tipped guidewire was placed down the IM canal. I measured for nail length and a 420 mm nail was selected. A 12 and half millimeter reamer was then placed over the guidewire and reamed down the canal. The 4 and 20 mm x 11 mm right long trochanteric nail was then placed over the guidewire. The guidewire was removed. I capped the nail into position. The lateral aiming arm was placed. A stab incision was made in the lateral aiming arm was advanced to the lateral aspect of the femur. A guidewire was placed in the central aspect of the femoral head neck in both the AP and lateral planes. This was measured and 100 mm helical blade was selected. The cortical strut drill was used to breach the cortex and the triple reamer was set at 100 and overreamed the guidewire. 100 mm helical blade was placed. Was tapped into position. I then compressed the fracture site and then tightened the proximal setscrew. The lateral aiming arm and was removed. Some final x- rays were obtained. Attention drawn distal interlocking. Using the perfect [place] technique the distal interlocking screw was placed. Perfect circles were obtained of the dynamic hole. A stab incision was made and the drill bit was used to create the hole. A 52 mm screw was placed. Some final x-rays were obtained. Attention drawn toward closing. All wounds were irrigated with coconuts of normal saline. I did inject locally with 30 cc of half percent Marcaine with epinephrine. The gluteal fascia was then closed in 1 Vicryl suture running fashion for subcutaneous tissues of all wounds were then closed with 2 Dexon suture in a buried interrupted fashion skin was closed skin bess. Leg was then cleaned and dried and sterile dressing was Xeroform, 4 x 4's, Tegaderm dressings were applied. The patient was then taken off the fracture table. He was brought out of general anesthesia and transferred to the recovery room in stable condition. Patient tolerated the procedure well and there were no complications. Pj Mcadams, my physician assistant professor of drama, was present for the entire procedure. His assistance was required for proper patient positioning, prepping and draping, surgical exposure, retraction, placing the implants, closure of the incision site and placement of the sterile bandage. I attest to the content of the Intraoperative Record and any orders documented therein. Any exceptions are noted below.
--- NOTE | 2022-11-15 16:34 | Fluoroscopy Report ---
FL femur RT 2V CLINICAL HISTORY: RIGHT TROCH NAIL COMPARISON STUDY: Pelvis and right femur radiographs November 15, 2022 at 8:41 AM. FLUOROSCOPY TIME: 60 seconds. pamela Stack: 13.09 mGy FLUOROSCOPIC IMAGES: 4 FINDINGS: Fluoroscopy was provided during open reduction and internal fixation of the intertrochanter ic fracture of the right femur with trochanteric nail. Fracture alignment has significantly improved and appears near anatomic. Hardware is intact. There are no unexpected radiopaque foreign bodies. IMPRESSION: Fluoroscopy provided during internal fixation of the intertrochanteric fracture of the r ight femur. ACT 112: Negative or not required by law. Electronically signed by: Brodie Hernandez M.D. 11/15/2022 4:31 PM
[2022-11-15] MEDS ORDERED: SUCCINYLCHOLINE CHLORIDE 20 MG/ML 10 ML VIAL IV ONE (16:42)
[2022-11-15] MEDS ORDERED: PHENYLEPHRINE HCL 10 MG/ML VIAL ONE (16:43)
[2022-11-15] MEDS ORDERED: ePHEDrine sulfate 50 MG/ML AMP ONE (16:43)
[2022-11-15] MEDS ORDERED: PROPOFOL IV EMULSION 10 MG/ML 20 ML VIAL IV ONE (16:43)
[2022-11-15] MEDS ORDERED: LIDOCAINE 2% 2 ML VIAL/AMP(20MG/ML) INFIL ONE (16:43)
[2022-11-15] MEDS ORDERED: ROCURONIUM BROMIDE 10 MG/ML 5 ML VIAL IV ONE (16:43)
--- NOTE | 2022-11-15 17:01 | Anesthesiology Progress Note ---
Date of Service November 15, 2022 Anesthesia Post Procedure Vital Signs Vital Signs: Temp Pulse Pulse Pulse Resp BP BP 11/15/22 16:43 36.2 C L 86 25 H 183/97 H 11/15/22 14:34 36.9 C 96 H 16 11/15/22 13:02 72 11/15/22 12:00 75 22 11/15/22 10:00 69 18 11/15/22 08:44 68 11/15/22 08:33 36.6 C 77 18 155/97 H BP Pulse Ox O2 Del Method O2 Flow Rate 11/15/22 16:43 100 Oxymask 5 11/15/22 14:34 151/94 H 97 Room Air 11/15/22 13:02 11/15/22 12:00 126/87 97 Room Air 11/15/22 10:00 150/95 H 93 Room Air 11/15/22 08:44 11/15/22 08:33 98 Room Air Transfer of Care Handoff Completed per policy Notes Mental Status: alert / awake / arousable and participated in evaluation Patient Amnestic to Procedure: Yes Nausea / Vomiting: adequately controlled Pain: adequately controlled Airway Patency, RR, SpO2: stable & adequate BP & HR: stable & adequate Hydration State: stable & adequate Anesthetic Complications: no major complications apparent and Pt Satisfied with anesthetic care
[2022-11-15] MEDS: SODIUM CHLORIDE 0.9% 1000ML 1,000 ML IV SCH (21:02)
[2022-11-15] MEDS: ASPIRIN 81 MG ECTAB PO SCH (21:03)
[2022-11-15] MEDS: QUEtiapine FUMARATE 200 MG TAB PO SCH (21:04)
[2022-11-15] MEDS: DOCUSATE SODIUM 100 MG CAP PO SCH (21:04)
[2022-11-15] MEDS: traZODone HCL 50 MG TAB PO SCH (21:05)
[2022-11-15] MEDS: FAMOTIDINE 20 MG TAB PO SCH (21:33)
[2022-11-15] MEDS: DOCUSATE SODIUM/SENNA 50/8.6MG TAB PO SCH (21:33)
[2022-11-16] MEDS: ceFAZolin 2000MG 2,000 MG/15 ML SYR IV SCH ×2 (01:44→10:38)
[2022-11-16 07:24] LABS: Appearance Urine Clear (Clear); Bacteria Urine Automated Negative (Negative); Bilirubin Urine Negative (Negative); Blood Urine Negative (Negative); Color Urine Yellow; Glucose Urine UA Negative (Negative); Ketones Urine Negative (Negative); Leukocyte Esterase Urine Negative (Negative); Nitrite Urine Negative (Negative); RBC Urine Automated 0-4 /hpf (0-4); Specific Gravity Urine 1.019 (1.000-1.030); Urobilinogen Urine Negative (Negative)
[2022-11-16 07:27] LABS: Protein Urine Trace (Negative)
[2022-11-16 08:27] LABS: BUN Creatinine Ratio 21.4 (10-20); Calcium 8.1 mg/dl (8.6-10.3); Creatinine Clr Calc Pharmacy 87.2 ml/min; Est GFR (African American) 101.4 ml/min; Est GFR (Non-African American) 87.5 ml/min; Potassium 3.7 mmol/L (3.5-5.1)
[2022-11-16 09:00] LABS: Basophils # (auto) 0.01 K/uL (0-0.2); Basophils % (auto) 0.1 %; Eosinophils # (auto) 0.01 K/uL (0-0.50); Eosinophils % (auto) 0.1 %; Hematocrit (blood only) 27.8 % (42.0-52.0); Hemoglobin 9.5 g/dl (14.0-18.0); Immature Granulocytes # (auto) 0.05 K/uL (0.01-0.20); Immature Granulocytes % (auto) 0.6 %; Lymphocytes # (auto) 0.99 K/uL (1.2-3.4); Lymphocytes % (auto) 11.7 %; Mean Corpuscular Hemoglobin 30.5 pg (25.0-34.0); Mean Corpuscular Hgb Conc 34.2 g/dL (32.0-36.0); Mean Corpuscular Volume 89.4 fL (80.0-100.0); Monocytes # (auto) 0.89 K/uL (0.11-0.59); Monocytes % (auto) 10.5 %; Platelet Count 176 K/uL (130-400); RDW Coefficient of Variation 13.3 % (11.5-14.5); RDW Standard Deviation 43.4 fL (36.4-46.3); Red Blood Count 3.11 M/uL (4.70-6.10); White Blood Count 8.45 K/ul (4.8-10.8)
[2022-11-16 09:01] LABS: INR 1.1 (0.9-1.1); Prothrombin Time 12.3 Seconds (9.0-12.0)
[2022-11-16] MEDS: FLUoxetine HCL 20 MG CAP PO SCH (09:17)
[2022-11-16] MEDS: ASPIRIN 81 MG ECTAB PO SCH ×2 (09:17→22:59)
[2022-11-16] MEDS: QUEtiapine FUMARATE 100 MG TABLET PO SCH (09:18)
[2022-11-16] MEDS: FAMOTIDINE 20 MG TAB PO SCH ×2 (09:18→22:58)
[2022-11-16] MEDS: DOCUSATE SODIUM 100 MG CAP PO SCH ×2 (09:19→22:59)
[2022-11-16] MEDS: SODIUM CHLORIDE 0.9% 1000ML 1,000 ML IV SCH (09:35)
[2022-11-16] MEDS: QUEtiapine FUMARATE 25 MG TABLET PO SCH (14:12)
--- NOTE | 2022-11-16 14:44 | Hospitalist Progress Note ---
Date of Service November 16, 2022 Assessment & Plan (1) Fall: Plan: Mechanical fall resulting in right hip fracture. He is status post open reduction internal fixation right hip fracture, postoperative day #1. OT and PT have been ordered. Appreciate orthopedic consultation and recommendations (2) Bifascicular block: Plan: Asymptomatic. Telemetry. No intervention necessary at this time (3) Closed right hip fracture: Plan: Postoperative day #1 after open reduction internal fixation. Appreciate orthopedic consultation and recommendations. OT and PT have been ordered (4) Major neurocognitive disorder: Plan: Supportive care. Continue scheduled seroquel . (5) Depression with anxiety: Plan: Stable.. Continue fluoxetine (6) Prostate cancer: Plan: He is on Lupron therapy. Continue to follow with oncology outpatient (7) Acute blood loss anemia: Plan: Hemoglobin 12.6 on admission and down to 9.5 today, November 16. We will follow. Oral iron supplementation ordered Plan Anticipate eventual discharge to rehab facility Admission and Anticipated Discharge Date Admission Date: November 15, 2022 Subjective Alert. No distress. Baseline cognitive disorder. Poor historian. Hemoglobin is dropped to 9.5 consistent with acute blood loss anemia postoperatively. No overt bleeding from the surgical site. Postoperative day #1 after open reduction internal fixation right hip fracture. Oral iron supplementation started. Oral intake is adequate. IV fluids discontinued. Oxycodone IR ordered as needed Review of Systems Review of Systems: Constitutional-no fever or chills ENT-no blurred vision, no double vision, no epistaxis, no sore throat Respiratory-no cough, no wheezing, no shortness of breath Cardiac-no palpitations, no chest pain, no syncope GI-no nausea, vomiting, diarrhea, melena, hematochezia -no urinary retention, no urinary incontinence, no dysuria, no hematuria Musculoskeletal-postoperative right hip discomfort with attempted movement Skin-no bruising, no rashes, no pruritus Neuro-no isolated weakness, no paresthesia, no weakness Psych-no depression, no anxiety Physical Exam Physical Exam: General-alert, baseline cognitive dysfunction, no distress HEENT-head atraumatic and normocephalic, pupils equal and reactive to light, extraocular muscles intact Neck-no lymphadenopathy or thyromegaly, trachea midline Chest-clear to auscultation percussion. No rales wheezing or rhonchi Cardiac-regular rate and rhythm, normal S1 and S2 Abdomen-normal bowel sounds, nontender, no hepatosplenomegaly Extremities-no peripheral edema. Right hip surgical site is unremarkable. Neuro-cranial nerves II through XII intact, motor and sensory function within normal limits, strength symmetrical , no focal deficits Psych-normal affect, normal mood Results & Data Results & Data Vital Signs (Past 12 Hours) Vital Signs Temp Pulse Pulse Pulse Resp BP Pulse Ox 11/16/22 11:52 36.7 C 85 17 104/63 96 11/16/22 08:07 37.1 C 89 18 100/62 95 11/16/22 07:31 95 H 11/16/22 03:46 37 C 90 18 90/56 L 96 O2 Del Method 11/16/22 11:52 Room Air 11/16/22 08:07 Room Air 11/16/22 07:31 11/16/22 03:46 Room Air Laboratory Results 11/16/22 07:41 11/16/22 07:41 PG Care Time/CCT Total # of Minutes Spent Total Time Spent with Patient: Total time spent is greater than 50% in coordination of care (as documented) at patient's floor/unit and/or counseling patient: Coding Level of Care Code 31044 SUB INP/OBS CARE 3/50MIN Diagnoses Fall W19.XXXA Bifascicular block I45.2 Closed right hip fracture S72.001A Major neurocognitive disorder F01.50 Depression with anxiety F41.8 Prostate cancer C61 Acute blood loss anemia D62
[2022-11-16] MEDS: FERROUS SULFATE 325 MG TAB PO SCH (16:56)
[2022-11-16] MEDS: oxyCODONE HCL IR 5 MG TAB (IMMEDIATE RELEASE) PO PRN (17:48)
--- NOTE | 2022-11-16 20:34 | Orthopedic Progress Note ---
Date of Service November 16, 2022 Assessment & Plan (1) Closed intertrochanteric fracture of right hip: POD1 cephalomedullary nail for right intertrochanteric fracture. -PT/OT: Mobilize as able. Weightbearing as tolerated. -Antibiotic prophylaxis discontinued today. -VTE PPx: Twice daily aspirin as written -Pain management per primary team -Monitor H&H for acute blood loss anemia Dispo: Per medical condition. Discharge instructions placed. Should have follow-up x-rays at 6 weeks. Suture/staple removal in 2-3 weeks. Please contact myself or Pj Mcadams PA-C (covering for Dr. Pike) via [place] text for any questions. Subjective No issues per nursing/chart. Patient unable to provide complaints Review of Systems All systems reviewed & are unremarkable except as noted in HPI & below. Physical Exam Right hip: Dressing c/d/i. Compartments soft and nontender. DNVI. Results & Data Results & Data Laboratory Results H & H 11/15/22 11/16/22 Range/Units 09:52 07:41 Hgb 12.6 L 9.5 L D (14.0-18.0) g/dl Hct 36.9 L 27.8 L (42.0-52.0) % Coagulation 11/15/22 11/16/22 Range/Units 09:52 07:41 INR 1.0 1.1 (0.9-1.1) Diagnostic Findings . PG Care Time/CCT Total # of Minutes Spent Total Time Spent with Patient: Total time spent is greater than 50% in coordination of care (as documented) at patient's floor/unit and/or counseling patient: Coding Level of Care Code 70505 Post Operative Follow-Up Diagnoses Closed intertrochanteric fracture of right hip S72.141A
[2022-11-16] MEDS: QUEtiapine FUMARATE 200 MG TAB PO SCH (22:57)
[2022-11-16] MEDS: traZODone HCL 50 MG TAB PO SCH (22:57)
[2022-11-16] MEDS: DOCUSATE SODIUM/SENNA 50/8.6MG TAB PO SCH (22:58)
[2022-11-17 06:19] LABS: Basophils # (auto) 0.03 K/uL (0-0.2); Basophils % (auto) 0.3 %; Eosinophils # (auto) 0.04 K/uL (0-0.50); Eosinophils % (auto) 0.5 %; Hemoglobin 8.9 g/dl (14.0-18.0); Immature Granulocytes # (auto) 0.05 K/uL (0.01-0.20); Immature Granulocytes % (auto) 0.6 %; Lymphocytes # (auto) 1.02 K/uL (1.2-3.4); Lymphocytes % (auto) 11.7 %; Mean Corpuscular Hemoglobin 30.4 pg (25.0-34.0); Mean Corpuscular Hgb Conc 34.2 g/dL (32.0-36.0); Mean Corpuscular Volume 88.7 fL (80.0-100.0); Monocytes # (auto) 0.82 K/uL (0.11-0.59); Monocytes % (auto) 9.4 %; Neutrophils # (auto) 6.79 K/uL (1.40-6.50); Neutrophils % (auto) 77.5 %; Platelet Count 159 K/uL (130-400); RDW Coefficient of Variation 13.2 % (11.5-14.5); RDW Standard Deviation 43.1 fL (36.4-46.3); Red Blood Count 2.93 M/uL (4.70-6.10); White Blood Count 8.75 K/ul (4.8-10.8)
[2022-11-17 06:48] LABS: BUN Creatinine Ratio 22.5 (10-20); Creatinine Clr Calc Pharmacy 103.2 ml/min; Est GFR (African American) 108.6 ml/min; Est GFR (Non-African American) 93.7 ml/min; Potassium 3.6 mmol/L (3.5-5.1)
--- NOTE | 2022-11-17 08:10 | Orthopedic Progress Note ---
Date of Service November 17, 2022 Assessment & Plan (1) Closed intertrochanteric fracture of right hip: POD2 cephalomedullary nail for right intertrochanteric fracture. Continue POC. -PT/OT: Mobilize as able. Weightbearing as tolerated. -Antibiotic prophylaxis discontinued today. -VTE PPx: Twice daily aspirin as written -Pain management per primary team -Monitor H&H for acute blood loss anemia Dispo: Per medical condition. Discharge instructions placed. Should have follow-up x-rays at 6 weeks. Suture/staple removal in 2-3 weeks. Please contact myself or Pj Mcadams PA-C (covering for Dr. Pike) via [place] text for any questions. Subjective Seen with nursing present. No issues. [place] did not participate in reporting. Review of Systems All systems reviewed & are unremarkable except as noted in HPI & below. Physical Exam RLE: Middle screw wound uncovered - well approx without erythema or drainage. Other incisions well dressed. DNVI. Compartments soft and NT. Constitutional WD/WN, vitals as above no acute distress and not intoxicated appearing Respiratory normal respiratory effort; no labored breathing Cardiovascular Extremities: normal capillary refill Results & Data Results & Data Laboratory Results H & H 11/15/22 11/16/22 11/17/22 Range/Units 09:52 07:41 05:43 Hgb 12.6 L 9.5 L D 8.9 L (14.0-18.0) g/dl Hct 36.9 L 27.8 L 26.0 L (42.0-52.0) % Coagulation 11/15/22 11/16/22 Range/Units 09:52 07:41 INR 1.0 1.1 (0.9-1.1) Diagnostic Findings . PG Care Time/CCT Total # of Minutes Spent Total Time Spent with Patient: Total time spent is greater than 50% in coordination of care (as documented) at patient's floor/unit and/or counseling patient: Coding Level of Care Code 05674 Post Operative Follow-Up Diagnoses Closed intertrochanteric fracture of right hip S72.141A
[2022-11-17] MEDS: FERROUS SULFATE 325 MG TAB PO SCH ×2 (09:18→16:46)
[2022-11-17] MEDS: FAMOTIDINE 20 MG TAB PO SCH ×2 (09:18→19:55)
[2022-11-17] MEDS: ASPIRIN 81 MG ECTAB PO SCH ×2 (09:18→19:54)
[2022-11-17] MEDS: FLUoxetine HCL 20 MG CAP PO SCH (09:18)
[2022-11-17] MEDS: DOCUSATE SODIUM 100 MG CAP PO SCH ×2 (09:18→19:53)
[2022-11-17] MEDS: QUEtiapine FUMARATE 100 MG TABLET PO SCH (09:18)
[2022-11-17] MEDS: oxyCODONE HCL IR 5 MG TAB (IMMEDIATE RELEASE) PO PRN ×2 (09:19→16:46)
[2022-11-17] MEDS: CHOLECALCIFEROL 5,000 UNITS 125 MCG TAB PO SCH (11:14)
[2022-11-17] MEDS: CALCIUM CARBONATE 1250MG TAB PO SCH ×2 (11:14→19:53)
[2022-11-17] MEDS: ALENDRONATE SODIUM 10 MG TAB PO SCH (11:14)
[2022-11-17] MEDS: QUEtiapine FUMARATE 25 MG TABLET PO SCH (13:43)
--- NOTE | 2022-11-17 15:23 | Hospitalist Progress Note ---
Date of Service November 17, 2022 Assessment & Plan (1) Fall: Plan: Mechanical fall resulting in right hip fracture. He is status post open reduction internal fixation right hip fracture, postoperative day #2. OT and PT. Appreciate orthopedic consultation and recommendations (2) Bifascicular block: Plan: Asymptomatic. Telemetry. No intervention necessary at this time (3) Closed right hip fracture: Plan: Postoperative day #2 after open reduction internal fixation. Appreciate orthopedic consultation and recommendations. Continue OT and PT (4) Major neurocognitive disorder: Plan: Supportive care. Continue scheduled seroquel . (5) Depression with anxiety: Plan: Stable.. Continue fluoxetine (6) Prostate cancer: Plan: He is on Lupron therapy. Continue to follow with oncology outpatient (7) Acute blood loss anemia: Plan: No transfusion necessary. Serial labs. Continue iron supplementation (8) Osteoporosis: Plan: Calcium, Fosamax, vitamin D ordered (9) Pathologic fracture: Plan: Of the hip due to underlying osteoporosis (10) Vitamin D deficiency: Plan: Vitamin D supplementation Plan Anticipate eventual discharge to rehab facility Admission and Anticipated Discharge Date Admission Date: November 15, 2022 Subjective Alert. No distress. Baseline cognitive dysfunction. He is stable overall. Hemoglobin is down slightly to 8.9. No transfusion needed. Godfrey catheter had to be placed due to urinary retention. Calcium, vitamin D, and Fosamax started for the osteoporosis. Vitamin D levels are low. I spoke by phone to his son, Henrik. Case management is pursuing placement at [facility]. Continue oral iron replacement for now. Review of Systems Review of Systems: Constitutional-no fever or chills ENT-no blurred vision, no double vision, no epistaxis, no sore throat Respiratory-no cough, no wheezing, no shortness of breath Cardiac-no palpitations, no chest pain, no syncope GI-no nausea, vomiting, diarrhea, melena, hematochezia -no urinary retention, no urinary incontinence, no dysuria, no hematuria Musculoskeletal-postoperative right hip discomfort with attempted movement. Surgical site is unremarkable Skin-no bruising, no rashes, no pruritus Neuro-no isolated weakness, no paresthesia, no weakness Psych-no depression, no anxiety Physical Exam Physical Exam: General-alert, baseline cognitive dysfunction, no distress HEENT-head atraumatic and normocephalic, pupils equal and reactive to light, extraocular muscles intact Neck-no lymphadenopathy or thyromegaly, trachea midline Chest-clear to auscultation percussion. No rales wheezing or rhonchi Cardiac-regular rate and rhythm, normal S1 and S2 Abdomen-normal bowel sounds, nontender, no hepatosplenomegaly Extremities-no peripheral edema. Right hip surgical site is unremarkable. Neuro-cranial nerves II through XII intact, motor and sensory function within normal limits, strength symmetrical , no focal deficits Psych-normal affect, normal mood Results & Data Results & Data Vital Signs (Past 12 Hours) Vital Signs Temp Pulse Pulse Resp BP BP Pulse Ox 11/17/22 13:13 36.9 C 86 13 97/69 L 95 11/17/22 07:40 11/17/22 07:58 36.3 C L 85 12 134/78 95 11/17/22 06:01 86 O2 Del Method 11/17/22 13:13 Room Air 11/17/22 07:40 Room Air 11/17/22 07:58 Room Air 11/17/22 06:01 Laboratory Results 11/17/22 05:43 11/17/22 05:43 PG Care Time/CCT Total # of Minutes Spent Total Time Spent with Patient: Total time spent is greater than 50% in coordination of care (as documented) at patient's floor/unit and/or counseling patient: Coding Level of Care Code 03916 SUB INP/OBS CARE 3/50MIN Diagnoses Fall W19.XXXA Bifascicular block I45.2 Closed right hip fracture S72.001A Major neurocognitive disorder F01.50 Depression with anxiety F41.8 Prostate cancer C61 Acute blood loss anemia D62 Osteoporosis M81.0 Pathologic fracture M84.40XA Vitamin D deficiency E55.9
[2022-11-17] MEDS: DOCUSATE SODIUM/SENNA 50/8.6MG TAB PO SCH (19:53)
[2022-11-17] MEDS: traZODone HCL 50 MG TAB PO SCH (19:55)
[2022-11-17] MEDS: QUEtiapine FUMARATE 200 MG TAB PO SCH (19:56)
[2022-11-18] MEDS: ALENDRONATE SODIUM 10 MG TAB PO SCH (05:40)
[2022-11-18 08:04] LABS: Basophils # (auto) 0.03 K/uL (0-0.2); Basophils % (auto) 0.4 %; Eosinophils # (auto) 0.13 K/uL (0-0.50); Eosinophils % (auto) 1.6 %; Hematocrit (blood only) 25.1 % (42.0-52.0); Hemoglobin 8.6 g/dl (14.0-18.0); Immature Granulocytes # (auto) 0.07 K/uL (0.01-0.20); Immature Granulocytes % (auto) 0.9 %; Lymphocytes # (auto) 0.97 K/uL (1.2-3.4); Lymphocytes % (auto) 12.2 %; Mean Corpuscular Hemoglobin 30.2 pg (25.0-34.0); Mean Corpuscular Hgb Conc 34.3 g/dL (32.0-36.0); Mean Corpuscular Volume 88.1 fL (80.0-100.0); Monocytes # (auto) 0.75 K/uL (0.11-0.59); Monocytes % (auto) 9.5 %; Neutrophils # (auto) 5.97 K/uL (1.40-6.50); Neutrophils % (auto) 75.4 %; Platelet Count 166 K/uL (130-400); RDW Coefficient of Variation 13.2 % (11.5-14.5); RDW Standard Deviation 43.1 fL (36.4-46.3); Red Blood Count 2.85 M/uL (4.70-6.10); White Blood Count 7.92 K/ul (4.8-10.8)
[2022-11-18 08:23] LABS: BUN Creatinine Ratio 28.4 (10-20); Calcium 8.4 mg/dl (8.6-10.3); Est GFR (African American) 106.8 ml/min; Est GFR (Non-African American) 92.2 ml/min; Potassium 3.7 mmol/L (3.5-5.1)
[2022-11-18] MEDS: FAMOTIDINE 20 MG TAB PO SCH ×2 (09:20→21:09)
[2022-11-18] MEDS: DOCUSATE SODIUM 100 MG CAP PO SCH ×2 (09:20→21:08)
[2022-11-18] MEDS: ASPIRIN 81 MG ECTAB PO SCH ×2 (09:20→21:10)
[2022-11-18] MEDS: CALCIUM CARBONATE 1250MG TAB PO SCH ×2 (09:20→21:11)
[2022-11-18] MEDS: FERROUS SULFATE 325 MG TAB PO SCH ×2 (09:20→17:09)
[2022-11-18] MEDS: QUEtiapine FUMARATE 100 MG TABLET PO SCH (09:20)
[2022-11-18] MEDS: CHOLECALCIFEROL 5,000 UNITS 125 MCG TAB PO SCH (09:20)
[2022-11-18] MEDS: FLUoxetine HCL 20 MG CAP PO SCH (09:21)
--- NOTE | 2022-11-18 12:58 | Hospitalist Progress Note ---
Date of Service November 18, 2022 Assessment & Plan (1) Fall: Plan: Mechanical fall resulting in right hip fracture. He is status post open reduction internal fixation right hip fracture, postoperative day #3. OT and PT. Appreciate orthopedic consultation and recommendations (2) Bifascicular block: Plan: Asymptomatic. Telemetry. No intervention necessary at this time (3) Closed right hip fracture: Plan: Postoperative day #3 after open reduction internal fixation. Appreciate orthopedic consultation and recommendations. Continue OT and PT (4) Major neurocognitive disorder: Plan: Supportive care. Continue scheduled seroquel . (5) Depression with anxiety: Plan: Stable.. Continue fluoxetine (6) Prostate cancer: Plan: He is on Lupron therapy. Continue to follow with oncology outpatient (7) Acute blood loss anemia: Plan: No transfusion necessary. Serial labs. Continue iron supplementation (8) Osteoporosis: Plan: Continue calcium, Fosamax, vitamin D (9) Pathologic fracture: Plan: Of the hip due to underlying osteoporosis (10) Vitamin D deficiency: Plan: Vitamin D supplementation Plan Anticipate eventual discharge to rehab facility . Hopefully November 20 Admission and Anticipated Discharge Date Admission Date: November 15, 2022 Subjective Alert. No distress. Baseline disorientation due to underlying cognitive dysfunction. Godfrey catheter remains in place. Hemoglobin has drifted down to 8.6 but no blood transfusion needed. He is on oral iron replacement therapy. Treatment for his osteoporosis has already been started with oral calcium, vitamin D, Fosamax. Vitamin D deficiency noted on lab testing. Review of Systems Review of Systems: Constitutional-no fever or chills ENT-no blurred vision, no double vision, no epistaxis, no sore throat Respiratory-no cough, no wheezing, no shortness of breath Cardiac-no palpitations, no chest pain, no syncope GI-no nausea, vomiting, diarrhea, melena, hematochezia -no urinary retention, no urinary incontinence, no dysuria, no hematuria Musculoskeletal-postoperative right hip discomfort with attempted movement. Weir rgical site is unremarkable Skin-no bruising, no rashes, no pruritus Neuro-no isolated weakness, no paresthesia, no weakness Psych-no depression, no anxiety Physical Exam Physical Exam: General-alert, baseline cognitive dysfunction, no distress HEENT-head atraumatic and normocephalic, pupils equal and reactive to light, extraocular muscles intact Neck-no lymphadenopathy or thyromegaly, trachea midline Chest-clear to auscultation percussion. No rales wheezing or rhonchi Cardiac-regular rate and rhythm, normal S1 and S2 Abdomen-normal bowel sounds, nontender, no hepatosplenomegaly Extremities-no peripheral edema. Right hip surgical site is unremarkable. Neuro-cranial nerves II through XII intact, motor and sensory function within normal limits, strength symmetrical , no focal deficits Psych-normal affect, normal mood. Baseline disorientation Results & Data Results & Data Vital Signs (Past 12 Hours) Vital Signs Temp Pulse Pulse Pulse Resp BP BP 11/18/22 11:53 37.1 C 78 16 116/76 11/18/22 07:25 77 11/18/22 07:16 36.7 C 71 16 109/69 11/18/22 02:57 36.4 C L 74 16 126/82 Pulse Ox O2 Del Method 11/18/22 11:53 98 Room Air 11/18/22 07:25 11/18/22 07:16 96 Room Air 11/18/22 02:57 95 Room Air Laboratory Results 11/18/22 07:30 11/18/22 07:30 PG Care Time/CCT Total # of Minutes Spent Total Time Spent with Patient: Total time spent is greater than 50% in coordination of care (as documented) at patient's floor/unit and/or counseling patient: Coding Level of Care Code 61430 SUB INP/OBS CARE 2/35MIN Diagnoses Fall W19.XXXA Bifascicular block I45.2 Closed right hip fracture S72.001A Major neurocognitive disorder F01.50 Depression with anxiety F41.8 Prostate cancer C61 Acute blood loss anemia D62 Osteoporosis M81.0 Pathologic fracture M84.40XA Vitamin D deficiency E55.9
[2022-11-18] MEDS: QUEtiapine FUMARATE 25 MG TABLET PO SCH (13:20)
[2022-11-18] MEDS: DOCUSATE SODIUM/SENNA 50/8.6MG TAB PO SCH (21:07)
[2022-11-18] MEDS: QUEtiapine FUMARATE 200 MG TAB PO SCH (21:10)
[2022-11-18] MEDS: traZODone HCL 50 MG TAB PO SCH (21:12)
[2022-11-19] MEDS: oxyCODONE HCL IR 5 MG TAB (IMMEDIATE RELEASE) PO PRN ×2 (03:51→22:32)
[2022-11-19] MEDS: ALENDRONATE SODIUM 10 MG TAB PO SCH (05:29)
[2022-11-19] MEDS: FERROUS SULFATE 325 MG TAB PO SCH ×2 (08:57→16:42)
[2022-11-19] MEDS: DOCUSATE SODIUM 100 MG CAP PO SCH ×2 (08:57→20:08)
[2022-11-19] MEDS: QUEtiapine FUMARATE 100 MG TABLET PO SCH (08:58)
[2022-11-19] MEDS: FLUoxetine HCL 20 MG CAP PO SCH (08:58)
[2022-11-19] MEDS: FAMOTIDINE 20 MG TAB PO SCH ×2 (08:58→20:08)
[2022-11-19] MEDS: CALCIUM CARBONATE 1250MG TAB PO SCH ×2 (08:58→20:09)
[2022-11-19] MEDS: CHOLECALCIFEROL 5,000 UNITS 125 MCG TAB PO SCH (08:58)
[2022-11-19] MEDS: ASPIRIN 81 MG ECTAB PO SCH ×2 (08:58→20:09)
[2022-11-19 09:28] LABS: Basophils # (auto) 0.04 K/uL (0-0.2); Basophils % (auto) 0.5 %; Eosinophils # (auto) 0.14 K/uL (0-0.50); Eosinophils % (auto) 1.9 %; Hematocrit (blood only) 26.1 % (42.0-52.0); Hemoglobin 8.9 g/dl (14.0-18.0); Immature Granulocytes # (auto) 0.04 K/uL (0.01-0.20); Immature Granulocytes % (auto) 0.5 %; Lymphocytes % (auto) 13.3 %; Mean Corpuscular Hemoglobin 30.2 pg (25.0-34.0); Mean Corpuscular Hgb Conc 34.1 g/dL (32.0-36.0); Mean Corpuscular Volume 88.5 fL (80.0-100.0); Mean Platelet Volume 8.9 fL (9.4-12.4); Monocytes # (auto) 0.62 K/uL (0.11-0.59); Monocytes % (auto) 8.2 %; Neutrophils % (auto) 75.6 %; Platelet Count 222 K/uL (130-400); Red Blood Count 2.95 M/uL (4.70-6.10); White Blood Count 7.54 K/ul (4.8-10.8)
--- NOTE | 2022-11-19 11:43 | Hospitalist Progress Note ---
Date of Service November 19, 2022 Assessment & Plan (1) Fall: Plan: Mechanical fall resulting in right hip fracture. He is status post open reduction internal fixation right hip fracture, postoperative day #4. OT and PT. Appreciate orthopedic consultation and recommendations (2) Bifascicular block: Plan: Asymptomatic. Telemetry. No intervention necessary at this time (3) Closed right hip fracture: Plan: Postoperative day #4 after open reduction internal fixation. Appreciate orthopedic consultation and recommendations. Continue OT and PT (4) Major neurocognitive disorder: Plan: Supportive care. Continue scheduled seroquel . (5) Depression with anxiety: Plan: Stable.. Continue fluoxetine (6) Prostate cancer: Plan: He is on Lupron therapy. Continue to follow with oncology outpatient (7) Acute blood loss anemia: Plan: No transfusion necessary. Serial labs. Continue iron supplementation. Hemoglobin is up trending (8) Osteoporosis: Plan: Continue calcium, Fosamax, vitamin D started this admission (9) Pathologic fracture: Plan: Of the hip due to underlying osteoporosis (10) Vitamin D deficiency: Plan: Vitamin D supplementation Plan Anticipate eventual discharge to rehab facility . Hopefully November 20 , to [facility] Admission and Anticipated Discharge Date Admission Date: November 15, 2022 Subjective Stable. No new problems. Hemoglobin is now up trending. I spoke to his son, Henrik, by phone today. Anticipate discharge to [facility] tomorrow, November 20 Review of Systems Review of Systems: Constitutional-no fever or chills ENT-no blurred vision, no double vision, no epistaxis, no sore throat Respiratory-no cough, no wheezing, no shortness of breath Cardiac-no palpitations, no chest pain, no syncope GI-no nausea, vomiting, diarrhea, melena, hematochezia -no urinary retention, no urinary incontinence, no dysuria, no hematuria Musculoskeletal-postoperative right hip discomfort with attempted movement. Surgical site is unremarkable Skin-no bruising, no rashes, no pruritus Neuro-no isolated weakness, no paresthesia, no weakness Psych-no depression, no anxiety Physical Exam Physical Exam: General-alert, baseline cognitive dysfunction, no distress HEENT-head atraumatic and normocephalic, pupils equal and reactive to light, extraocular muscles intact Neck-no lymphadenopathy or thyromegaly, trachea midline Chest-clear to auscultation percussion. No rales wheezing or rhonchi Cardiac-regular rate and rhythm, normal S1 and S2 Abdomen-normal bowel sounds, nontender, no hepatosplenomegaly Extremities-no peripheral edema. Right hip surgical site is unremarkable. Neuro-cranial nerves II through XII intact, motor and sensory function within normal limits, strength symmetrical , no focal deficits Psych-normal affect, normal mood. Baseline disorientation Results & Data Results & Data Vital Signs (Past 12 Hours) Vital Signs Temp Pulse Pulse Pulse Resp BP BP 11/19/22 08:23 36.6 C 85 16 116/78 11/19/22 07:09 76 11/19/22 03:07 36.8 C 81 20 132/83 Pulse Ox O2 Del Method 11/19/22 08:23 94 Room Air 11/19/22 07:09 11/19/22 03:07 96 Room Air Laboratory Results 11/19/22 09:10 11/18/22 07:30 PG Care Time/CCT Total # of Minutes Spent Total Time Spent with Patient: Total time spent is greater than 50% in coordination of care (as documented) at patient's floor/unit and/or counseling patient: Coding Level of Care Code 19876 SUB INP/OBS CARE 2/35MIN Diagnoses Fall W19.XXXA Bifascicular block I45.2 Closed right hip fracture S72.001A Major neurocognitive disorder F01.50 Depression with anxiety F41.8 Prostate cancer C61 Acute blood loss anemia D62 Osteoporosis M81.0 Pathologic fracture M84.40XA Vitamin D deficiency E55.9
[2022-11-19] MEDS: QUEtiapine FUMARATE 25 MG TABLET PO SCH (13:25)
[2022-11-19] MEDS: traZODone HCL 50 MG TAB PO SCH (20:08)
[2022-11-19] MEDS: DOCUSATE SODIUM/SENNA 50/8.6MG TAB PO SCH (20:08)
[2022-11-19] MEDS: QUEtiapine FUMARATE 200 MG TAB PO SCH (20:09)
[2022-11-20] MEDS: ALENDRONATE SODIUM 10 MG TAB PO SCH (05:10)
[2022-11-20 06:37] LABS: Basophils # (auto) 0.03 K/uL (0-0.2); Basophils % (auto) 0.5 %; Eosinophils # (auto) 0.26 K/uL (0-0.50); Eosinophils % (auto) 4.3 %; Hematocrit (blood only) 24.7 % (42.0-52.0); Hemoglobin 8.4 g/dl (14.0-18.0); Immature Granulocytes # (auto) 0.02 K/uL (0.01-0.20); Immature Granulocytes % (auto) 0.3 %; Lymphocytes # (auto) 1.05 K/uL (1.2-3.4); Lymphocytes % (auto) 17.2 %; Mean Corpuscular Hemoglobin 29.9 pg (25.0-34.0); Mean Corpuscular Volume 87.9 fL (80.0-100.0); Monocytes # (auto) 0.57 K/uL (0.11-0.59); Monocytes % (auto) 9.3 %; Neutrophils # (auto) 4.17 K/uL (1.40-6.50); Neutrophils % (auto) 68.4 %; Platelet Count 225 K/uL (130-400); RDW Standard Deviation 41.6 fL (36.4-46.3); Red Blood Count 2.81 M/uL (4.70-6.10)
--- NOTE | 2022-11-20 07:32 | Progress Notes ---
DATE OF SERVICE: 11/20/2022. SUBJECTIVE: A 72-year-old gentleman, now postop day #5 from IM nailing of a right intertrochanteric fracture. He is lying on bed, looks pretty comfortable. He denies any significant pain. OBJECTIVE: VITAL SIGNS: Temperature is 36.8. Vital signs stable. GENERAL: Shows a pleasant, elderly demented gentleman. He is lying on bed. He looks comfortable. He claims he is not in any pain at all. EXTREMITIES: Examination of the right hip reveals the leg to be well aligned. Dressings are clean, dry, and intact. He can dorsiflex and plantarflex his foot appropriately. LABORATORY DATA: Hemoglobin 8.4. Hematocrit 24.7. ASSESSMENT: A 72-year-old gentleman with multiple underlying medical comorbidities including signifi cant dementia, postop day 5 from IM nailing of a right intertrochanteric fracture. Orthopedically, dionisio byers is doing fine. Hemoglobin is a little bit low, but asymptomatic. Pain is controlled. PLAN: 1. DVT prophylaxis including thigh-high TEDs, SCDs, and aspirin twice a day for 6 weeks. 2. PT/OT. Can weight bear as tolerated. 3. Pain control, seems to be doing fine with current pain regimen. 4. Disposition. He is orthopedically okay for discharge any time, medically stable. I need to see him back in 2-3 weeks out from surgery date. Any orthopedic questions can be directed to me at [phone]. Job ID: [id number]
[2022-11-20] MEDS ORDERED: IRON SUCROSE 200 MG in 0.9 % SODIUM CHLORIDE 100 ML IV ONE (08:30)
[2022-11-20] MEDS: FERROUS SULFATE 325 MG TAB PO SCH (08:54)
[2022-11-20] MEDS: CHOLECALCIFEROL 5,000 UNITS 125 MCG TAB PO SCH (08:58)
[2022-11-20] MEDS: CALCIUM CARBONATE 1250MG TAB PO SCH ×2 (08:58→19:55)
[2022-11-20] MEDS: QUEtiapine FUMARATE 100 MG TABLET PO SCH (08:58)
[2022-11-20] MEDS: ASPIRIN 81 MG ECTAB PO SCH ×2 (08:58→19:55)
[2022-11-20] MEDS: DOCUSATE SODIUM 100 MG CAP PO SCH ×2 (08:59→19:57)
[2022-11-20] MEDS: FLUoxetine HCL 20 MG CAP PO SCH (08:59)
[2022-11-20] MEDS: FAMOTIDINE 20 MG TAB PO SCH ×2 (08:59→19:56)
[2022-11-20 09:37] LABS: BUN Creatinine Ratio 34.5 (10-20); Calcium 8.3 mg/dl (8.6-10.3); Creatinine Clr Calc Pharmacy 133.3 ml/min; Est GFR (African American) 120.7 ml/min; Est GFR (Non-African American) 104.1 ml/min; Magnesium 1.8 mg/dl (1.7-2.4); Potassium 3.5 mmol/L (3.5-5.1)
[2022-11-20 12:58] LABS: Appearance Urine Clear (Clear); Bacteria Urine Automated Negative (Negative); Bilirubin Urine 1+ (Negative); Blood Urine 2+ (Negative); Glucose Urine UA Negative (Negative); Ketones Urine Trace (Negative); Leukocyte Esterase Urine 1+ (Negative); Nitrite Urine Positive (Negative); Protein Urine 1+ (Negative); Specific Gravity Urine 1.037 (1.000-1.030); Urobilinogen Urine Negative (Negative); pH Urine 6.5 (4.5-7.5)
[2022-11-20 12:59] LABS: Color Urine Amber
[2022-11-20] MEDS ORDERED: bisacodyL 10 MG SUPP PR ONE (13:20)
--- NOTE | 2022-11-20 13:20 | Hospitalist Progress Note ---
Date of Service November 20, 2022 Assessment & Plan (1) Pathological fracture of hip due to age-related osteoporosis: Plan: Right hip. POD #5 - s/p IM nail by Dr Pike. Appreciate his assistance. DVT proph - asa 81mg BID. WBAT. Replace low vitamin D. Incisions/dressings intact. (2) Acute blood loss anemia: Plan: Stable H/H over the last 48 hours, but he is symptomatic from the anemia; by report his SBP dropped into the 80s with sitting/standing today. Thus, Tx 1 unit PRBCs. Repeat H/H am. Also gave IV venofer 200mg x 1 today. Repeat again tomorrow. (3) Vitamin D deficiency: Plan: 25-OH vit D level 19. Replace - vit D 5000 IU daily. Repeat level 2-3 months. (4) Fall: Plan: with subsequent right hip fracture. (5) Dementia: Plan: advanced. no agitation or significant delirium today. cont seroquel, haldol prn, melatonin HS (6) Prostate cancer: Plan: S/P radical prostatectomy and Lupron therapy last PSA 0.008 in 05/2022 (7) Low grade fever: Plan: check u/a and urine cx - r/o UTI if u/a is suspicious for UTI then start keflex 500mg BID (8) Constipation: Plan: if no BM by later today then dulcolax suppos x 1 senna + miralax daily for maintenance (9) DVT prophylaxis: Plan: aspirin 81mg BID x 6 weeks Plan d/c hayes voiding trial daughter extensively updated by phone this evening cont PT/OT received message from Corin Zimmerman from case management that he needs an updated COVID booster for admittance to [facility] I spoke with his daughter Anastasia Rubio re: the booster and she gave verbal consent over the telephone for such as patient does not retain capacity COVID booster ordered Admission and Anticipated Discharge Date Admission Date: November 15, 2022 Subjective tele overnight - NSR, couple very brief (seconds) of PAT no a.fib during the visit he was watching TV he denied pain in his right hip staff report no BM since admission eating well - 75% or more of his meals hayes remains in place due to his dementia he cannot provide any meaningful history or ROS Review of Systems Review of Systems: Unobtainable due to cognitive status Physical Exam Physical Exam: gen - resting comfortably in bed, confused but pleasant, NAD mouth - MMM neck - no JVD heart - irregular (extra beats), s1 s2, no murmur lungs - CTA b/l abd - soft NT ND BS+; no HSM ext - right thigh edema only, pulses of feet 2+ b/l, no ankle edema musculo - right hip dressings in place psych - oriented to person only skin - pallor Results & Data Results & Data Vital Signs (Past 12 Hours) Vital Signs Temp Pulse Pulse Pulse Resp BP BP 11/20/22 11:45 36.4 C L 93 H 18 99/72 L 11/20/22 07:53 36.5 C 89 14 146/87 H 11/20/22 07:38 36.4 C L 88 18 112/72 11/20/22 07:17 64 11/20/22 03:45 36.8 C 67 16 163/95 H Pulse Ox O2 Del Method 11/20/22 11:45 95 Room Air 11/20/22 07:53 90 Room Air 11/20/22 07:38 95 Room Air 11/20/22 07:17 11/20/22 03:45 96 Room Air Laboratory Results Laboratory Results - last 24 hr 11/20/22 11/20/22 11/20/22 06:03 06:03 12:30 WBC 6.10 RBC 2.81 L Hgb 8.4 L Hct 24.7 L MCV 87.9 MCH 29.9 MCHC 34.0 RDW Std Deviation 41.6 RDW Coeff of Carol 13.0 Plt Count 225 MPV 9.0 L Immature Gran % (Auto) 0.3 Neut % (Auto) 68.4 Lymph % (Auto) 17.2 [place] % (Auto) 9.3 Eos % (Auto) 4.3 Baso % (Auto) 0.5 Neut # (Auto) 4.17 Lymph # (Auto) 1.05 L [place] # (Auto) 0.57 Eos # (Auto) 0.26 Baso # (Auto) 0.03 Immature Gran # (Auto) 0.02 Sodium 138 Potassium 3.5 Chloride 105 Carbon Dioxide 26 Anion Gap 7 BUN 19 Creatinine 0.55 L Est Cr Clr Drug Dosing 133.3 Est GFR ( Amer) 120.7 Est GFR (Non-Af Amer) 104.1 BUN/Creatinine Ratio 34.5 H Glucose 93 Calcium 8.3 L Magnesium 1.8 Urine Color Deena Urine Appearance Clear Urine pH 6.5 Ur Specific [place] 1.037 H Urine Protein 1+ H Urine Glucose (UA) Negative Urine Ketones Trace H Urine Blood 2+ H Urine Nitrite Positive A Urine Bilirubin 1+ H Urine Urobilinogen Negative Ur Leukocyte Esterase 1+ H Urine WBC (Auto) 1-5 Urine RBC (Auto) 10-30 H U Hyaline Cast (Auto) 5-10 H U Epithel Cells (Auto) 10-20 H Urine Bacteria (Auto) Negative PG Care Time/CCT Total # of Minutes Spent Total Time Spent with Patient: Total time spent is greater than 50% in coordination of care (as documented) at patient's floor/unit and/or counseling patient: Coding Level of Care Code 33469 SUB INP/OBS CARE 3/50MIN Diagnoses Pathological fracture of hip due to age-related osteoporosis M80.059A Acute blood loss anemia D62 Vitamin D deficiency E55.9 Fall W19.XXXA Encounter type: initial encounter Dementia F03.B0 Dementia behavioral or psychological symptom: without behavioral, psychotic, or mood disturbance or anxiety Dementia severity: moderate Dementia type: unspecified type Prostate cancer C61 Low grade fever R50.9 Constipation K59.00 DVT prophylaxis Z29.9 (4) Fall Encounter type: initial encounter Qualified Code(s): W19.XXXA - Unspecified fall, initial encounter (5) Dementia Dementia behavioral or psychological symptom: without behavioral, psychotic, or mood disturbance or anxiety Dementia severity: moderate Dementia type: unspecified type Qualified Code(s): F03.B0 - Unspecified dementia, moderate, without behavioral disturbance, psychotic disturbance, mood disturbance, and anxiety
[2022-11-20] MEDS: QUEtiapine FUMARATE 25 MG TABLET PO SCH (13:23)
[2022-11-20] MEDS: cephALEXin 500 MG CAP PO SCH ×2 (13:38→19:54)
[2022-11-20] MEDS: POLYETHYLENE (MIRALAX) 17 GM PACK PO SCH (13:38)
[2022-11-20] MEDS ORDERED: SODIUM CHLORIDE 0.9% 250 ML IV PRN (14:09)
[2022-11-20] MEDS ORDERED: COVID19 BIVALENT Vaccine (Booster ONLY--Pfizer) 30mcg/0.3mL IM ONE (19:30)
[2022-11-20] MEDS: oxyCODONE HCL IR 5 MG TAB (IMMEDIATE RELEASE) PO PRN (19:53)
[2022-11-20] MEDS: QUEtiapine FUMARATE 200 MG TAB PO SCH (19:55)
[2022-11-20] MEDS: DOCUSATE SODIUM/SENNA 50/8.6MG TAB PO SCH (19:56)
[2022-11-20] MEDS: traZODone HCL 50 MG TAB PO SCH (19:56)
[2022-11-21] MEDS: ALENDRONATE SODIUM 10 MG TAB PO SCH (05:49)
[2022-11-21 06:46] LABS: Basophils # (auto) 0.03 K/uL (0-0.2); Basophils % (auto) 0.4 %; Eosinophils % (auto) 2.7 %; Hematocrit (blood only) 27.5 % (42.0-52.0); Hemoglobin 9.6 g/dl (14.0-18.0); Immature Granulocytes # (auto) 0.07 K/uL (0.01-0.20); Immature Granulocytes % (auto) 0.9 %; Lymphocytes % (auto) 13.4 %; Mean Corpuscular Hemoglobin 30.5 pg (25.0-34.0); Mean Corpuscular Hgb Conc 34.9 g/dL (32.0-36.0); Mean Corpuscular Volume 87.3 fL (80.0-100.0); Mean Platelet Volume 8.7 fL (9.4-12.4); Monocytes # (auto) 0.67 K/uL (0.11-0.59); Neutrophils # (auto) 5.47 K/uL (1.40-6.50); Neutrophils % (auto) 73.6 %; Platelet Count 252 K/uL (130-400); RDW Coefficient of Variation 12.9 % (11.5-14.5); RDW Standard Deviation 40.8 fL (36.4-46.3); Red Blood Count 3.15 M/uL (4.70-6.10); White Blood Count 7.44 K/ul (4.8-10.8)
[2022-11-21 07:02] LABS: BUN Creatinine Ratio 32.1 (10-20); Calcium 8.2 mg/dl (8.6-10.3); Creatinine Clr Calc Pharmacy 138.3 ml/min; Est GFR (African American) 122.5 ml/min; Est GFR (Non-African American) 105.7 ml/min; Potassium 3.6 mmol/L (3.5-5.1)
[2022-11-21] MEDS ORDERED: IRON SUCROSE 300 MG in SODIUM CHLORIDE 0.9% 250 ML IV ONE (08:09)
[2022-11-21] MEDS: POLYETHYLENE (MIRALAX) 17 GM PACK PO SCH (08:18)
[2022-11-21] MEDS: CALCIUM CARBONATE 1250MG TAB PO SCH (08:18)
[2022-11-21] MEDS: QUEtiapine FUMARATE 100 MG TABLET PO SCH (08:18)
[2022-11-21] MEDS: DOCUSATE SODIUM 100 MG CAP PO SCH (08:18)
[2022-11-21] MEDS: cephALEXin 500 MG CAP PO SCH (08:18)
[2022-11-21] MEDS: CHOLECALCIFEROL 5,000 UNITS 125 MCG TAB PO SCH (08:18)
[2022-11-21] MEDS: ASPIRIN 81 MG ECTAB PO SCH (08:18)
[2022-11-21] MEDS: FLUoxetine HCL 20 MG CAP PO SCH (08:18)
[2022-11-21] MEDS: FAMOTIDINE 20 MG TAB PO SCH (08:19)
[2022-11-21] MEDS ORDERED: CYANOCOBALAMIN (B-12) 500 MCG TABLET PO SCH (09:00)
--- NOTE | 2022-11-21 11:58 | Discharge Summary ---
Date of Service date of admission - November 15, 2022 date of discharge - November 21, 2022 Admission HPI Per Admitting Provider Milton is a 72 year old male with a PMH significant for dementia, intermittent lightheadedness, and metastatic prostate cancer S/P radical prostatectomy and Lupron therapy in 2011 who presented to the [facility] ED via EMS from the [facility] due to unwitnessed fall. Per the ED staff, it is unknown when the patient fell, if he hit his head/lost consciousness, or how long he was down for. s His vitals were stable and labs including CBC, CMP, and high sen trop were WNL. CT head was negative for acute findings. Xray's of the BL pelvis show an Intertrochanteric fracture of the right proximal femur. Per the intake information, EMS reported that the patient was temporarily in afib in transport but converted spontaneously prior to arrival. Prior to admission the patient was given 4 mg IV morphine. At the time of the exam the patient was lying in bed in no acute distress with his children bedside. The patient is unable to provide history due to his baseline mental status. His children state, they were told the patient fell this am while at breakfast. However, staff only saw him on the ground, they did not see the fall. His children do not believe that he was down for a prolonged period of time. His children confirm that he is a DNR/DNI. Principal Diagnosis 1. right hip fracture s/p ORIF with IM Nail - 11/15/22 - Dr Austin Pike 2. constipation 3. vitamin D deficiency (25-OH vit D level = 19) 4. advanced dementia 5. acute blood loss anemia due to #1 - s/p 1 unit PRBCs, 2 runs of IV venofer; discharge hemoglobin = 9.6 6. vitamin B12 deficiency (level = 214) 7. possible UTI 8. history of prostate cancer 9. question of run of atrial fibrillation pre-hospitalization Discharge Exam gen - resting comfortably in bed, confused but pleasant, NAD mouth - MMM neck - no JVD heart - irregular (extra beats), s1 s2, no murmur lungs - CTA b/l abd - soft NT ND BS+; no HSM ext - mild right thigh edema only, pulses of feet 2+ b/l, no ankle edema musculo - right hip dressings in place; antony intact over multiple lateral thigh incisions with no drainage/erythema psych - oriented to person only skin - pallor but no rash Discharge Data Allergies Allergy/AdvReac Type Severity Reaction Status Date / Time No Known Allergies Allergy Verified 10/19/22 14:42 Neoprene Knee Stabilizer AdvReac Unknown Rash Uncoded 10/19/22 14:42 Vaccinations Covid-19 Pfizer Bivalent Vaccine - 11/21/22 Consultations Orthopedic Surgery - Austin Pike MD PT OT Procedures Performed 1. Operation Date: 11/15/22 12:55 Actual Procedures Right Hip Long Troch Nail - Austin Pike MD 2. PRBCs x 1 unit Ordered Studies Femur X-Ray 11/15/22 00:00 FL femur RT 2V CLINICAL HISTORY: RIGHT TROCH NAIL COMPARISON STUDY: Pelvis and right femur radiographs November 15, 2022 at 8:41 AM. FLUOROSCOPY TIME: 60 seconds. Ka, r: 13.09 mGy FLUOROSCOPIC IMAGES: 4 FINDINGS: Fluoroscopy was provided during open reduction and internal fixation of the intertrochanteric fracture of the right femur with trochanteric nail. Fracture alignment has significantly improved and appears near anatomic. Hardware is intact. There are no unexpected radiopaque foreign bodies. IMPRESSION: Fluoroscopy provided during internal fixation of the intertrochanteric fracture of the right femur. ACT 112: Negative or not required by law. Electronically signed by: Brodie Hernandez M.D. 11/15/2022 4:31 PM Femur X-Ray 11/15/22 08:45 XR femur RT 2V routine, XR femur LT 2V routine CLINICAL HISTORY: Fall. Bilateral femur pain. COMPARISON STUDY: Pelvis radiograph 11/15/2022. FINDINGS: There is again noted a comminuted and mildly displaced intertrochanteric fracture within the proximal right femur. The distal right f emur appears intact. No dislocation. No acute fracture or dislocation within the left femur. IMPRESSION: 1. Redemonstration of the proximal right femoral intertrochanteric fracture. 2. No fracture or dislocation within the left femur. ACT 112: Negative or not required by law. Electronically signed by: Ever Wade M.D. 11/15/2022 9:[address] 11/15/22 08:45 CT SCAN OF THE BRAIN WITHOUT IV CONTRAST CLINICAL HISTORY: Fall. Dementia. COMPARISON STUDY: CT of the brain dated 06/23/2022 TECHNIQUE: Unenhanced axial CT scan of the brain is performed from the vertex to the skull base. A dose lowering technique was utilized adhering to the principles of ALARA. CT DOSE: 614.27 mGy.cm FINDINGS: Brain parenchyma: There is age-related involutional change noting moderate subcortical and periventricular microangiopathic disease. There is no hemorrhage, mass effect, or evidence of acute territorial ischemia by CT criteria. Carrizales-white matter differentiation is preserved. No extra-axial fluid collection is seen. Ventricles, sulci, cisterns: Prominent secondary to involutional change. Intracranial vasculature: There is atherosclerotic calcification of the cavernous carotid arteries. Calvarium: The skeletal structures are osteopenic. No depressed calvarial fracture is seen. Sinuses and mastoids: The visualized paranasal sinuses are clear. The mastoid air cells are well pneumatized. Cerumen is noted in the left external auditory canal. Orbits: The bony orbits are grossly intact. There are bilateral ocular lens implants. IMPRESSION: There is no hemorrhage, mass effect, or evidence of acute territorial ischemia by CT criteria. ACT 112: Negative or not required by law. Electronically signed by: Tej Scanlon M.D. 11/15/2022 10:22 AM Pelvis X-Ray 11/15/22 08:45 SINGLE VIEW PELVIS CLINICAL HISTORY: Fall. Pain. FINDINGS: An AP supine view of the pelvis is obtained. Correlation is made with pelvic CT dated 04/16/2019. The skeletal structures are osteopenic. No acute fracture is seen involving the left hip or the bony pelvis. There is a comminuted intertrochanteric fracture of the right proximal femur with medial displacement of the lesser trochanter. Overlying soft tissue edema is noted. Mild arthritic change and joint space narrowing is seen in the hips. Degener ative sclerosis is noted in the sacroiliac joints. Lumbosacral spondylosis is partially imaged. Surgical clips project over the scrotum. There is no bowel obstruction. IMPRESSION: Intertrochanteric fracture of the right proximal femur as above. Electronically signed by: Tej Scanlon M.D. 11/15/2022 9:39 AM Femur X-Ray 11/15/22 09:01 XR femur RT 2V routine, XR femur LT 2V routine CLINICAL HISTORY: Fall. Bilateral femur pain. COMPARISON STUDY: Pelvis radiograph 11/15/2022. FINDINGS: There is again noted a comminuted and mildly displaced intertrochanteric fracture within the proximal right femur. The distal right femur appears intact. No dislocation. No acute fracture or dislocation within the left femur. IMPRESSION: 1. Redemonstration of the proximal right femoral intertrochanteric fracture. 2. No fracture or dislocation within the left femur. ACT 112: Negative or not required by law. Electronically signed by: Ever Wade M.D. 11/15/2022 9:45 AM Chest X-Ray 11/15/22 11:55 SUPINE PORTABLE AP CHEST RADIOGRAPH CLINICAL HISTORY: Pre-operative clearance for right hip fracture COMPARISON STUDY: Chest CT April 16, 2019. FINDINGS: Lung volumes are normal. There is no consolidation to suggest pneumonia. Linear left basilar density represents atelectasis or scarring. There is no pneumothorax or pleural effusion on supine exam. Cardiac size is normal. Mediastinal contours are normal. There is no evidence for pulmonary edema. IMPRESSION: No acute cardiopulmonary findings. ACT 112: Negative or not required by law. Electronically signed by: Brodie Hernandez M.D. 11/15/2022 12:40 PM Hospital Course (1) Pathological fracture of hip due to age-related osteoporosis: Right hip. s/p ORIF of hip fracture with IM nail by Dr Austin Pike on 11/15/22. Hospital course complicated by acute blood loss anemia (see #2 below). DVT proph - asa 81mg BID x 6 weeks. WBAT to RLE. Replace low vitamin D. Incisions/dressings intact at time of discharge. He will need f/u with Dr Pike about 2 weeks past his surgical date. (2) Acute blood loss anemia: Hemoglobin was 12.6 on day of admission. Post-op his hemoglobin fell to the mid 8's and remained there for several days. However, as he started to work with therapy, it was noted that he was orthostatic with drop in systolic BP to <100. Thus, he was given 1 unit of PRBCs without incident on 11/20/22. He also received 2 IV venofer infusions while here. Discharge hemoglobin was 9.6. For completeness B12 and folate levels were checked. Folate was normal. Vitamin B12 level was low at 214. Supplementation will be provided. Recommend follow-up CBC within a few days of discharge for stability. (3) Vitamin D deficiency: 25-OH vit D level = 19. Replace - vit D 5000 IU daily. Repeat level 2-3 months. (4) Fall: with subsequent right hip fracture. see #1 above. (5) Dementia: advanced. no agitation or significant delirium during the stay fortunately. he was pleasantly confused throughout the hospitalization. cont seroquel, haldol prn, melatonin HS (6) Prostate cancer: S/P radical prostatectomy and Lupron therapy last PSA 0.008 in 05/2022 (7) Low grade fever: Tmax was 37.6 a few days before discharge. checked u/a - somewhat suspicious for UTI. urine cx was sent & was pending at time of discharge. started on keflex for suspected UTI. will complete a 7 day course of such. COVID testing x 2 -- both negative. CXR negative for pneumonia. no signs/symptoms of DVT while here. (8) Constipation: resolved prior to discharge. cont colace, senna, and miralax for bowel maintenance. (9) DVT prophylaxis: aspirin 81mg BID x 6 weeks would continue pepcid for GI prophylaxis while on the aspirin (10) PAF (paroxysmal atrial fibrillation): Per the admission history & physical document the patient had a possible run of rapid a.fib in the ambulance en route to [facility]. Prior to arrival he converted back to NSR. Oddly there is no mention of PAF in the EMS record, nor any rhythm strip or EKG to show this reported run of PAF. During his stay here he had frequent ectopy and a few brief (seconds) runs of PAT but NO a.fib or a.flutter. Recommend a 30-day event monitor to detect runs of a.fib/flutter. This will be ordered and mailed to [facility]. [email or web address] COVID bivalent booster was given prior to pt's transfer to [facility] on 11/21/22 Total Time Total Time Spent Total Time Spent (In Minutes): 45 Discharge Plan Discharge Items Patient Disposition: Transfer Usp Fac Reason For Visit: UNWITNESSED FALL Discharge Diagnosis: 1. right hip fracture s/p ORIF with IM Nail - 11/15/22 - Dr Austin Pike 2. constipation 3. vitamin D deficiency (25-OH vit D level = 19) 4. advanced dementia 5. acute blood loss anemia due to #1 - s/p 1 unit PRBCs, 2 runs of IV venofer; discharge hemoglobin = 9.6 6. vitamin B12 deficiency (level = 214) 7. possible UTI 8. history of prostate cancer 9. question of run of atrial fibrillation in the ambulance en route to [facility] - no records to substantiate such; 30-day event monitor advised Condition on Discharge: Good Activity: Per Instructions section Weightbearing: Right weightbearing Weightbearing Comment: as tolerated - RLE Non-emergency contact: Primary Care Provider and Surgeon Call non-emergency contact if: you have any medication questions, your symptoms worsen, your pain is not controlled, your pain is worsening, you have a fever, your wound has increased redness, your wound has increased drainage and your wound pain has increased Follow-up/Referrals: Fuentes Tan MD [Primary Care Provider] - Austin Pike MD [Physician] - (Orthopedic follow-up 2 weeks from surgery date (11/15/22)) Diet: Regular Diet Texture: Easy to Chew Diet Comment: minced and moist Addtl Attending Provider Instructions: Mr Duran was hospitalized after suffering a fall with resulting right hip fracture. The fall was unwitnessed. By report there was ?run of atrial fibrillation in the ambulance en route to [facility] but there is no rhythm strip to confirm this nor any documentation to substantiate such. He underwent ORIF of the right hip fracture by Dr Pike on 11/15/22. Post-op course was complicated by acute blood loss anemia. He was given 1 unit PRBCs on 11/20/22 and 2 runs of IV venofer (11/20 and 11/21). Discharge hemoglobin was 9.6. Recommendations - 1. CBC, BMP in 3-4 days for stability. 2. A 30-day cardiac event monitor will be set up via [facility]. The monitor will be mailed to [facility] with instructions on its use. The monitor is being done to r/o runs of a.fib. 3. Urine culture is pending at time of discharge; while awaiting final results please continue cephalexin 500mg BID x 6 days. Orthopaedic Instructions after Hip Fracture Surgery: Please keep your wound clean and dry. Do not remove any of the antony. [place] will be removed at your follow-up appointment with orthopedic surgery. Please continue daily dressing changes until your follow-up appointment. If there is no drainage onto the dressing for total of 24 hours, you may shower after 5 days from surgery. Allow soap and water to run over the incision, no scrubbing, and pat dry. Do not submerse (sitting in bathtub, hot tub, jacuzzi, pool, etc) the wound for at least 3 weeks. You may bear weight on your lower extremities as tolerated. Please use the walker or as instructed by physical therapy. For pain control please use Tylenol as needed. You may also have a stronger pain medication prescribed to you at discharge. You can also apply ice to the surgical site. To reduce the risk of dangerous blood clots please continue aspirin therapy twice daily x 6 weeks. Orthopedic clinic follow-up should be in 6 weeks after surgery for repeat x-ray. Antony can be removed at orthopedic follow-up in 2 to 3 weeks. If necessary, antony can be removed by a nurse at home or at a nursing facility upon our order. Please contact the clinic. Pending Studies at Discharge: Yes Studies:: Urine culture Stand-Alone Forms: My [facility] Skilled Items Patient informed of condition?: Yes DNR: Yes Discharge Level of Care: Skilled Communicable Disease: No Discharge Prognosis: Stable Lines: None Urinary Catheter: No Medications and DC Order Prescriptions: New aspirin 81 mg Tablet,Delayed Release (Dr/Ec) 81 mg PO BID 42 Days Qty: 84 0RF cephalexin 500 mg Capsule 500 mg PO BID 6 Days Qty: 12 0RF oxycodone 5 mg Tablet 5 mg PO Q6H PRN (Reason: pain) Qty: 30 0RF cholecalciferol (vitamin D3) 125 mcg (5,000 unit) Tablet 5,000 unit PO QAM Qty: 30 1RF cyanocobalamin (vitamin B-12) 500 mcg Tablet 1,000 mcg PO QAM 90 Days Qty: 180 3RF polyethylene glycol 3350 [Miralax] 17 gram Powder In Packet 17 g PO DAILY Qty: 30 0RF senna 8.6 mg capsule 8.6 mg PO DAILY Qty: 30 2RF Continued famotidine 20 mg tablet 20 mg PO BID Qty: 180 1RF fluoxetine 20 mg capsule 20 mg PO DAILY Qty: 90 1RF docusate sodium [Colace] 100 mg capsule 100 mg PO BID quetiapine [Seroquel] 50 mg tablet See Rx Instructions PO DAILY Rx Instructions: 100mg in morning, 50 mg at 2pm, 200mg at bedtime melatonin 3 mg capsule 3 mg PO HS PRN (Reason: Sleep) haloperidol 0.5 mg tablet 0.5 mg PO TID PRN (Reason: Agitation) Lupron Depot (4 month) 30 mg syringe kit 30 mg IM Q16W trazodone 50 mg tablet 50 mg PO HS Changed acetaminophen 325 mg capsule 1,000 mg PO TID 14 Days Qty: 1 0RF Discharge Orders: Discharge Order (Routine); Ordered 11/21/22 Ordered By: Cayden Hinojosa Admission Data Admit Date/Time: 11/15/22 10:46 Attending Provider: Cayden Hinojosa Admit Provider: Cayden Shirley Primary Care Provider: Fuentes Tan Other Providers: Cayden Shirley ; Rolly Ferrell ; Laci Root at [place] ; [place],[facility] Other Interventions: Discharge Summary Assessment (RN) Last Done: 11/21/22 12:28 Coding Level of Care Code 29784 INP/OBS DISCH >30 MIN Diagnoses Pathological fracture of hip due to age-related osteoporosis M80.059A Acute blood loss anemia D62 Vitamin D deficiency E55.9 Fall W19.XXXA Encounter type: initial encounter Dementia F03.B0 Dementia behavioral or psychological symptom: without behavioral, psychotic, or mood disturbance or anxiety Dementia severity: moderate Dementia type: unspecified type Prostate cancer C61 Low grade fever R50.9 Constipation K59.00 DVT prophylaxis Z29.9 PAF (paroxysmal atrial fibrillation) I48.0
--- NOTE | 2022-11-21 13:52 | Progress Notes ---
DATE OF SERVICE: 11/21/2022. SUBJECTIVE: A 72-year-old gentleman with underlying dementia and now about 6 days out from IM nailin g of a right intertrochanteric hip fracture. He denies any pain this morning. No other complaints. Just waiting for placement. OBJECTIVE: VITAL SIGNS: Temperature 36.1. Vital signs are stable. GENERAL: Shows a pleasant, elderly male. He is lying in bed, looks quite comfortable. Denies any p ain. EXTREMITIES: Examination of the right leg reveals some very mild swelling of the thigh. His dressin gs are clean, dry, and intact. No drainage. NEUROLOGIC: He is neurologically intact. ASSESSMENT: A 72-year-old gentleman now 6 days out from IM nailing of a right intertrochanteric hip fracture, doing well. His pain seems to be controlled. He does have some underlying dementia. PLAN: 1. DVT prophylaxis including thigh-high TEDs, SCDs, and aspirin twice a day for 6 weeks. 2. PT/OT. He can fully weight bear as tolerated in right leg. 3. Pain control. He seems to be doing okay with current pain regimen. 4. Medical management as per the medicine service. 5. Disposition: He is orthopedically okay for discharge any time. I need to see him back in 2-3 we eks out from surgery date. Any orthopedic questions can be directed to me at [phone]. Job ID: [id number]
== END 2022-11-21 13:17 | DRG 481 ==
LOC: ED 08:33 → EDINP 10:46 → SUATTDRO 10:46 → EDINP 14:03 → 2W 17:38